=== PATIENT | male | born 1960 | race Caucasian/White ===

== ENCOUNTER 2024-03-22 09:10 | Inpatient (IN) ==
--- NOTE | 2024-03-22 09:32 | Emergency Department Note ---
History of Present Illness General Chief complaint: Rib Injury/Pain Stated complaint: RIB PAIN, SOB, TROUBLE SLEEPING, WEAKNESS, VOMITIN Time Seen by Provider: 03/22/24 09:24 Source: patient, RN notes reviewed and old records reviewed (Attempted but no old records available in EMR) Mode of arrival: ambulatory Limitations: no limitations History of Present Illness Maximum Pain Intensity: 8 This patient is a 63-year-old previous healthy male comes in with sharp right- sided chest pain has been constant for the last 2 days it is worse during the day and also when he lays on it. Has been feeling rundown for the last month or so but thinks it could be work-related. He feels a little short of breath no fall or trauma no pleurisy no fever no rash no cough no abdominal pain he had emesis this morning x 1 no blood or melena .he has been somewhat constipated. He tells me he is healthy otherwise does not smoke drink or use drugs. He recently moved to the area and does not have a local primary care doctor yet Home Medications Medication Instructions Recorded Confirmed Type biotin-alpha lipoic 1 tab PO DAILY 03/22/24 03/22/24 History [id number] 75 mg-300 mcg tablet calcium carbonate 500 mg PO DAILY 03/22/24 03/22/24 History electrolytes, oral 1 packet PO DAILY 03/22/24 03/22/24 History multivitamin 1 tab PO DAILY 03/22/24 03/22/24 History vitamin B complex 1 tab PO DAILY 03/22/24 03/22/24 History Allergies Allergy/AdvReac Type Severity Reaction Status Date / Time No Known Allergies Allergy Unverified 03/22/24 11:15 Past Med/Surg History Problem List (Updated 03/22/24 @ 14:04 by Steve Henderson MD) Hypertension (Acute) Non-STEMI (non-ST elevated myocardial infarction) (Acute) Diabetes mellitus, new onset (Acute) Lymph node enlargement Abnormal EKG Weight loss of more than 10% body weight Hypertensive urgency Chest pain Elevated troponin Hypertensive emergency Weakness (Acute) Elevated troponin I level (Acute) Right-sided chest pain (Acute) Diabetic ketoacidosis (Acute) Social History Smoking Status: Never smoker Preferred Language: Greek Feels Safe at Home: Yes Immunizations: Past medical historypatient denies any. Social historydoes not smoke or drink or use drugs. Review of Systems A total of 10 systems reviewed and were otherwise negative Physical Exam Vital Signs Vital Signs - 24 hr 03/22/24 09:12 03/22/24 10:00 03/22/24 10:00 Temperature 35.9 C L Temperature Source Temporal Artery Scan Pulse Rate 100 H 97 H Pulse Rate [Right Finger] 103 H Pulse Rhythm Pulse Rhythm [Right Finger] Regular Pulse Strength [Right Finger] Normal Respiratory Rate 18 18 Respiratory Effort / Characteristics Non-Labored Spontaneous Non-Labored Respiratory Depth Normal Normal Respiratory Pattern Regular Regular Blood Pressure 217/136 H Blood Pressure [Left Arm] 191/118 H Blood Pressure Mean 163 Blood Pressure Mean [Left Arm] 142 Blood Pressure Position [Left Arm] Pulse Oximetry 99 95 Oxygen Delivery Method Room Air Room Air Sepsis Recent Fever Within 48 Hours No Sepsis New/Unexplained Change in Mental Status N/A Sepsis Action Taken by Nursing No Action Required 03/22/24 10:00 03/22/24 10:00 03/22/24 10:06 Temperature Temperature Source Pulse Rate 91 H Pulse Rate [Right Finger] Pulse Rhythm Regular Pulse Rhythm [Right Finger] Pulse Strength [Right Finger] Respiratory Rate Respiratory Effort / Characteristics Respiratory Depth Respiratory Pattern Blood Pressure 191/118 H 191/118 H Blood Pressure [Left Arm] Blood Pressure Mean 137 137 Blood Pressure Mean [Left Arm] Blood Pressure Position [Left Arm] Pulse Oximetry 97 Oxygen Delivery Method Room Air Sepsis Recent Fever Within 48 Hours Sepsis New/Unexplained Change in Mental Status Sepsis Action Taken by Nursing 03/22/24 10:06 03/22/24 11:14 03/22/24 11:14 Temperature Temperature Source Pulse Rate 101 H Pulse Rate [Right Finger] Pulse Rhythm Pulse Rhythm [Right Finger] Pulse Strength [Right Finger] Respiratory Rate 31 H Respiratory Effort / Characteristics Respiratory Depth Respiratory Pattern Blood Pressure 189/123 H 189/123 H Blood Pressure [Left Arm] Blood Pressure Mean 148 148 Blood Pressure Mean [Left Arm] Blood Pressure Position [Left Arm] Pulse Oximetry Oxygen Delivery Method Sepsis Recent Fever Within 48 Hours Sepsis New/Unexplained Change in Mental Status Sepsis Action Taken by Nursing 03/22/24 11:15 Temperature Temperature Source Pulse Rate Pulse Rate [Right Finger] 103 H Pulse Rhythm Pulse Rhythm [Right Finger] Regular Pulse Strength [Right Finger] Normal Respiratory Rate 18 Respiratory Effort / Characteristics Non-Labored Respiratory Depth Normal Respiratory Pattern Regular Blood Pressure Blood Pressure [Left Arm] 189/123 H Blood Pressure Mean Blood Pressure Mean [Left Arm] 145 Blood Pressure Position [Left Arm] Lying Pulse Oximetry 98 Oxygen Delivery Method Room Air Sepsis Recent Fever Within 48 Hours Sepsis New/Unexplained Change in Mental Status Sepsis Action Taken by Nursing General: Well developed well nourished middle-age male who appears in no acute distress, breathing comfortably on room air. Normal speech HEENT: Normal cephalic atraumatic. Pupils are equal round and reactive to light. Extraocular movements are intact. Oropharynx is pink with moist mucous membranes. No swelling of the mouth lips or tongue. Neck: Supple with a midline trachea. No meningeal signs or stiffness, no JVD or bruits. No Stridor. Chest: Clear to auscultation bilaterally. No wheezes or rhonchi. No increased work of breathing. No crepitus. No rash. Heart: Regular rate and rhythm without murmurs or gallops. Abdomen: Soft nontender, nondistended without rebound guarding or rigidity. Extremities: No cyanosis clubbing or edema. No calf tenderness or assymetry Spine/Back. Non tender to palpation. No CVA tenderness Skin: Good turgor without rashes. Neurologic exam: Cranial nerves two through 12 are intact. Motor and sensation are intact and symmetrical throughout. Course Administered Medications Insulin Human Regular 250 (units/ Sodium Chloride) 250 mls @ 5.8 mls/hr IV .Q24H [facility]; Protocol Stop: 04/21/24 10:44 Last Titration: 03/22/24 13:39 Dose: 5.8 units/hr, 5.8 mls/hr Documented By: BECKIE Co-signed By: GINA Admin: 03/22/24 11:24 Dose: 7.2 units/hr, 7.2 mls/hr Documented By: NASIM Co-signed By: [facility] Discontinued Medications Sodium Chloride (Nss) 1,000 mls @ 999 mls/hr IV .Q1H1M STA Stop: 03/22/24 10:30 Last Admin: 03/22/24 10:06 Dose: 999 mls/hr Documented By: NASIM Sodium Chloride (Nss) 1,000 mls @ 999 mls/hr IV .Q1H1M ONE Stop: 03/22/24 11:33 Last Admin: 03/22/24 12:32 Dose: 999 mls/hr Documented By: NASIM Lactated Ringer's (Lr) 1,000 mls @ 999 mls/hr IV .Q1H1M ONE Stop: 03/22/24 13:00 Last Admin: 03/22/24 11:57 Dose: 999 mls/hr Documented By: MACKENZIE Insulin Human Regular (Novolin-R Bolus From Bag) 6 units IV NOW STA Stop: 03/22/24 10:41 Last Admin: 03/22/24 11:28 Dose: 6 units Documented By: NASIM Co-signed By: MACKENZIE Ioversol (Optiray 320 125ml) 112 ml IV ONCE ONE Stop: 03/22/24 10:48 Last Admin: 03/22/24 10:47 Dose: 112 ml Documented By: PURA Metoprolol Tartrate (Metoprolol Tartrate 1 Mg/Ml Vial) 5 mg IV NOW STA Stop: 03/22/24 11:57 Last Admin: 03/22/24 12:17 Dose: 5 mg Documented By: NASIM Metoprolol Tartrate (Metoprolol Tartrate 1 Mg/Ml Vial) 5 mg IV NOW STA Stop: 03/22/24 12:40 Last Admin: 03/22/24 12:51 Dose: 5 mg Documented By: NASIM Morphine Sulfate (Morphine Sulfate 2 Mg/Ml Carp) 2 mg IV NOW STA Stop: 03/22/24 09:51 Last Admin: 03/22/24 10:15 Dose: 2 mg Documented By: NASIM Ondansetron HCl (Ondansetron Inj 2 Mg/Ml 2 Ml Vial) 4 mg IV NOW STA Stop: 03/22/24 09:51 Last Admin: 03/22/24 10:15 Dose: 4 mg Documented By: NASIM Critical Care Time Critical Care Time: Yes Total Critical Care Time: 60 Due to the patient's chest pain, concern for vascular or neurologic problems as well as multiple lab abnormalities, new onset diabetic ketoacidosis and consultations, IV fluids as well as multiple medications needed as well as frequent reassessment, I have personally spent greater than 30 minutes of critical care time in the direct management of this patient. This includes bedside care, interpretation of diagnostic studies, and testing, discussion with consultants, patient, and family members, and other required patient management activities. This 30 minutes is in excess of all separately billable procedures. Medical Decision Making Differential Diagnosis Musculoskeletal, infectious, pulmonary disease, PE, cardiac disease, pneumothorax, intra-abdominal process, electrolyte or metabolic abnormality, anxiety Medical Records Attestation: I reviewed the patient's medical records. Home Medications Current Medication List: was personally reviewed by me Laboratory Data Attestation: I reviewed the patient's lab results. 03/22/24 09:52 03/22/24 09:52 Lab Results 03/22/24 03/22/24 03/22/24 Range/Units 09:52 09:55 10:26 WBC 10.84 H (4.8-10.8) K/ul RBC 5.43 (4.70-6.10) M/uL Hgb 16.6 (14.0-18.0) g/dl POC Hgb 18.7 H (14.0-18.0) g/dl Hct 50.4 (42.0-52.0) % POC Hct 55 H (42-52) % MCV 92.8 (80.0-100.0) fL MCH 30.6 (25.0-34.0) pg MCHC 32.9 (32.0-36.0) g/dL RDW Std Deviation 43.4 (36.4-46.3) fL RDW Coeff of Alexa 12.7 (11.5-14.5) % Plt Count 232 (130-400) K/uL MPV 10.8 (9.4-12.4) fL Immature Gran % (Auto) 0.3 % Neut % (Auto) 89.4 % Lymph % (Auto) 5.9 % [place] % (Auto) 3.8 % Eos % (Auto) 0.0 % Baso % (Auto) 0.6 % Neut # (Auto) 9.69 H (1.40-6.50) K/uL Lymph # (Auto) 0.64 L (1.20-3.40) K/uL [place] # (Auto) 0.41 (0.11-0.59) K/uL Eos # (Auto) 0.00 (0.00-0.50) K/uL Baso # (Auto) 0.07 (0.00-0.20) K/uL Immature Gran # (Auto) 0.03 (0.01-0.20) K/uL D-Dimer 380 (0-500) ug/L FEU VBG pH 7.15 L (7.36-7.41) VBG pCO2 42 (38-50) mmHg VBG pO2 50 mmHg VBG HCO3 15 mmol/L VBG O2 Saturation 76.0 % VBG Base Excess -13.8 mEq/L POC Sodium 132 L (135-144) mmol/L Sodium 130 L (136-145) mmol/L POC Potassium 4.9 (3.3-5.0) mmol/L Potassium 4.8 (3.5-5.1) mmol/L POC Chloride 99 L (101-112) mmol/L Chloride 92 L (98-107) mmol/L Carbon Dioxide 14 L (21-32) mmol/L POC Total CO2 15 L (24-31) mmol/L Anion Gap 24 H (3-11) POC Anion Gap 24.0 (16-25) mmol/L POC BUN 21 H (7-18) mg/dl BUN 23 (6-23) mg/dl Creatinine 1.34 (0.6-1.4) mg/dl POC Creatinine 1.0 (0.6-1.3) mg/dl Est Cr Clr Drug Dosing 49.0 ml/min Est GFR ( Amer) 65.3 ml/min Est GFR (Non-Af Amer) 56.4 ml/min BUN/Creatinine Ratio 17.2 (10-20) Glucose 611 H* (70-99(Fasting)) mg/dl POC Glucose (other) 625 H* (70-99) mg/dl Calcium 10.7 H (8.6-10.3) mg/dl POC Ioniz Calcium Karlos 1.29 (1.12-1.32) mmol/l Phosphorus 5.8 H (2.5-4.9) mg/dl Magnesium 2.2 (1.7-2.4) mg/dl Total Bilirubin 0.9 (0.2-1.0) mg/dl AST 22 (13-39) U/L ALT 35 (7-52) U/L Alkaline Phosphatase 118 H (34-104) U/L Troponin I High Sens 552.4 H* (0-20) pg/ml Total Protein 8.9 H (6.0-8.3) gm/dl Albumin 5.0 (3.4-5.0) gm/dl Globulin 3.9 (2.5-4.0) gm/dl Albumin/Globulin Ratio 1.3 (0.9-2) Lipase 18 (11-82) U/L Prostate Specific Ag 0.540 (0-4) ng/ml Free PSA 0.13 (0-2.0) ng/ml % Free PSA 24.1 % Imaging Data Attestation: I personally reviewed and interpreted this imaging study as follows: My Impression: Chest x-rayno acute infiltrate, failure, pneumothorax seen Radiologist's Impression: Chest X-Ray 03/22/24 09:50 SINGLE VIEW CHEST CLINICAL HISTORY: Atypical chest pain. FINDINGS: An AP, portable, upright chest radiograph is obtained. No prior studies are available for comparison at the time of dictation. The cardiomediastinal silhouette is unremarkable. There is elevation of the right hemidiaphragm. The lungs and pleural spaces are clear. No pneumothorax is seen. The bony thorax is grossly intact. IMPRESSION: No active disease in the chest. ACT 112: Negative or not required by law. Electronically signed by: Félix Van M.D. 03/22/2024 10:31 AM Abdomen CTA 03/22/24 09:59 CT ANGIOGRAM OF THE ABDOMEN COMBO CLINICAL HISTORY: Low back pain. COMPARISON STUDY: No priors. TECHNIQUE: Before and following the IV administration of 112 cc of Optiray 320, CT angiogram of the abdomen was performed from the lung bases the pelvic and. Images are reviewed in the axial, sagittal, and coronal planes. 3-D MIPS images are created and assessed. IV contrast was administered without complication. A dose lowering technique was utilized adhering to the principles of ALARA. FINDINGS: Lower chest: The heart is enlarged and without pericardial effusion. There are coronary artery calcifications. There is mild ectasia of the partially visualized ascending thoracic aorta. This measures up to 3.7 cm in diameter. There is elevation of the right hemidiaphragm and bibasilar scarring/atelectasis. No airspace consolidation or pleural effusion is identified. A small hiatal hernia is noted. Liver: The contrast-enhanced liver is normal in size, contour, and attenuation. There is no intrahepatic biliary ductal dilatation. The main portal veins appear patent. Gallbladder: Unremarkable. Spleen: Normal in size and attenuation noting heterogeneous arterial phase enhancement. Pancreas: Unremarkable. Adrenal glands: Unremarkable. Kidneys: The contrast enhanced kidneys are normal in size and without hydronephrosis. The kidneys enhance symmetrically. No renal calculi are identified on the unenhanced series and there is no proximal ureteral stone. Abdominal aorta and iliac arteries: The abdominal aorta is normal in course and caliber noting mild atherosclerotic calcification. The abdominal aorta is widely patent. No dissection is seen. Imaged portions of the common iliac arteries are widely patent. Major branches of the abdominal aorta: The celiac trunk, superior mesenteric, and inferior mesenteric arteries are widely patent. Hepatic arterial anatomy is conventional. The splenic artery is patent. There are 2 renal arteries seen bilaterally. These are widely patent. Bowel: Imaged portions of the small bowel and colon show no evidence of obstruction. There is moderate colonic fecal retention. The appendix is well- visualized and normal. Peritoneum: There is no intraperitoneal free air or abdominal ascites. There is a small fat-containing umbilical hernia. Lymphadenopathy: There is a pathologically enlarged retrocaval lymph node/mass lesion seen on image #119. This measures 3.6 x 3.9 x 2.9 cm. No additional pathologically enlarged lymph nodes are identified in the abdomen. Skeletal structures: There is mild lumbosacral spondylosis. No destructive bony lesions are seen. IMPRESSION: 1. Unremarkable CT angiogram of the abdominal aorta and its major branches. 2. No acute infectious or inflammatory findings are identified in the abdomen. 3. There is a 3.9 cm pathologically enlarged retrocaval lymph node or mass lesion. This is pathologically indeterminant, and neoplasm is the diagnosis of exclusion. Consider correlation with scrotal ultrasound and serum PSA levels as well as dedicated imaging of the pelvis. 4. No additional pathologically enlarged lymph nodes are identified in the abdomen. 5. Additional findings as above. ACT 112: Positive. There are findings on this exam that require communication between the performing entity and the patient following Patient Test Result Information Act ([place] Act 112) guidelines. Electronically signed by: Félix Van M.D. 03/22/2024 11:38 AM Chest CTA 03/22/24 09:59 CHEST CTA for AORTIC DISSECTION CT DOSE: 2556.7 mGy.cm HISTORY: rt sided chest pain TECHNIQUE: Multiaxial CT images of the chest were performed both before and after the intravenous administration of contrast to evaluate the aorta. 3D/MIP images were also obtained. Sagittal and coronal reformations were also reviewed. A dose lowering technique was utilized adhering to the principles of ALARA. COMPARISON STUDY: None. FINDINGS: No acute fractures within the chest. The ascending thoracic aorta measures up to 3.8 cm in diameter. No evidence for an aortic dissection. The central pulmonary arteries are patent. There is mild elevation of the right hemidiaphragm. The heart is normal in size. Mild coronary artery calcifications are noted. No pleural or pericardial effusions. The abdominal structures will be reported on the same day abdomen and pelvis CT. There is a partially visualized single enlarged retrocaval mass/lymph node on image 225. This measures 3.7 cm. Normal esophagus. No mediastinal or hilar lymphadenopathy. The central airways are patent. No pneumothorax. No focal lung consolidations to suggest a pneumonia. No evidence for pulmonary edema. Right basilar linear densities favor subsegmental atelectasis or scarring. IMPRESSION: 1. No evidence for an aortic dissection. 2. There is a partially visualized 3.7 cm right retrocaval mass/lymph node within the abdomen. This is is highly suspicious for a malignancy. This is better appreciated on the same day abdomen and pelvis CT. ACT 112: Positive. There are findings on this exam that require communication between the performing entity and the patient following Patient Test Result Information Act ([place] Act 112) guidelines. Electronically signed by: Clint Barakat M.D. 03/22/2024 11:[address] 03/22/24 09:59 CT head/brain wo con CLINICAL HISTORY: 63 years-old Male with weakness. Acute weakness TECHNIQUE: Multiple axial CT images of the head were obtained without contrast. A dose lowering technique was utilized adhering to the principles of ALARA. CT DOSE: 625.8 mGy.cm COMPARISON: None. FINDINGS: No acute intracranial hemorrhage, midline shift, intracranial mass, hydrocephalus, territorial ischemia or abnormal extra-axial collection. Mild involutional changes. The calvarium is intact. Prior bilateral injury repair. The paranasal sinuses, mastoid air cells, and middle ear cavities are clear. IMPRESSION: No acute intracranial abnormality. ACT 112: Negative or not required by law. The above report was generated using voice recognition software. It may contain grammatical, syntax or spelling errors. Electronically signed by: Kenny Zuleta M.D. 03/22/2024 11:03 AM ECG Data Attestation: I personally reviewed and interpreted this ECG as follows: Indication: + chest pain Rate (beats per minute): 88 Rhythm: + normal sinus and + other (Poor baseline) ECG Intervals/blocks: + Normal QRS, + Normal QT and + Normal ID ECG [place]: + Normal ECG ST segments: + Nonspecific ST abnormalities ECG Findings: + Q waves Comparison ECG Date: no prior available Additional Comments: EKG #2: Normal sinus rhythm with a rate of 90. There is a poor baseline there is some Q waves inferiorly with some ST abnormalities I suspect he likely had a previous ND. There is no change compared EKG #1 MDM Narrative This patient comes in as described above. He was placed on a awake overnight monitor and room 89. Here for treatment evaluation of right-sided chest pain. Upon my arrival he appears in no distress his O2 sat is 99% on room air. he has no crepitus or subcutaneous air and has equal breath sounds. IV access established and multiple blood testing was obtained. Chest x-ray and ekg. the nurse thought he could have a facial droop I reassessed him and he has normal strength and normal neurologic exam his mouth is very dry but he seems to have normal speech otherwise he is able to name objects and read sentences. His EKG shows normal sinus rhythm he does have some nonspecific ST abnormalities and some Q waves inferiorly likely from previous cardiac event I do not think is likely of an acute STEMI, but may be old findings. He was given morphine 2 mg IV and Zofran 4 mg he for pain and nausea management as below his i-STAT shows a significant elevated blood sugar over 600 with a CO2 of 15 he may be in DKA. He was given 1 L normal saline bolus while waiting for the additional labs and VBG was added. I did talk to Bhavin, our ED pharmacist and he has ordered insulin drip protocol. The patient does have a dry mouth and speech is likely related to hyperglycemia at this point but given his hypertension and chest pain ,I did do a CT angiography of the chest and abdomen to make sure this was not related to his aorta. His chest x-ray does not show congestive heart failure pneumonia or pneumothorax or any findings to suggest aortic pathology. His second EKG was unchanged. The first. His troponin came back elevated at over [address] Diop he looked at the EKGs and did not feel was likely acute STEMI and recommended we get an echocardiogram. Lianet fuentes is actually here in the ED at present and was able to do it promptly. The CAT scan of the head was unremarkable. CAT scan of the chest and abdomen did not show any vascular pathology. There is a node seen in the abdomen which is concerning for possible malignancy and will need to be worked up as well. I did discuss the case in consultation as well as with Dr. Barrett, who saw the patient ER. Dr. Barton, from the ICU also saw the patient ER discussed the case with him as well. Dr. Diop did read his echo and told me there were no wall motion abnormalities. The patient's blood pressures remained elevated although is trending downward. I am not sure what his baseline is and he may have longstanding hypertension. This will further need to be addressed in the hospital. Continuous awake overnight monitor: Orders placed in EMR for continuous cardiac monitoring: Upon my evaluation patient noted to be in normal sinus rhythm rate of 90 Impression & Plan Diabetic ketoacidosis, Right-sided chest pain, Elevated troponin I level, Weakness, Diabetes mellitus, new onset, Non-STEMI (non-ST elevated myocardial infarction), Hypertension Discharge Plan Visit Data Chief Complaint: Rib Injury/Pain Stated Complaint: RIB PAIN, SOB, TROUBLE SLEEPING, WEAKNESS, VOMITIN ED Provider: Steve Henderson Discharge Problem: Diabetic ketoacidosis, Right-sided chest pain, Elevated troponin I level, Weakness, Diabetes mellitus, new onset, Non-STEMI (non-ST elevated myocardial infarction), Hypertension Patient Disposition: Admitted As Inpatient Discharge Instructions Interventions: ED Discharge Assessment Last Done: 03/22/24 13:09 Discharge Problem: Diabetic ketoacidosis Qualifiers: Diabetes mellitus type: type 2 Diabetes mellitus complication detail: without coma Qualified Code(s): E11.10 - Type 2 diabetes mellitus with ketoacidosis without coma Hypertension Qualifiers: Hypertension type: unspecified Qualified Code(s): I10 - Essential (primary) hypertension
[2024-03-22] MEDS: SODIUM CHLORIDE 0.9% 1,000 ML IV STA (10:06)
[2024-03-22 10:12] LABS: Basophils # (auto) 0.07 K/uL (0.00-0.20); Basophils % (auto) 0.6 %; Hematocrit (blood only) 50.4 % (42.0-52.0); Hemoglobin 16.6 g/dl (14.0-18.0); Immature Granulocytes # (auto) 0.03 K/uL (0.01-0.20); Immature Granulocytes % (auto) 0.3 %; Lymphocytes # (auto) 0.64 K/uL (1.20-3.40); Lymphocytes % (auto) 5.9 %; Mean Corpuscular Hemoglobin 30.6 pg (25.0-34.0); Mean Corpuscular Hgb Conc 32.9 g/dL (32.0-36.0); Mean Corpuscular Volume 92.8 fL (80.0-100.0); Mean Platelet Volume 10.8 fL (9.4-12.4); Monocytes # (auto) 0.41 K/uL (0.11-0.59); Monocytes % (auto) 3.8 %; Neutrophils # (auto) 9.69 K/uL (1.40-6.50); Neutrophils % (auto) 89.4 %; Platelet Count 232 K/uL (130-400); RDW Coefficient of Variation 12.7 % (11.5-14.5); RDW Standard Deviation 43.4 fL (36.4-46.3); Red Blood Count 5.43 M/uL (4.70-6.10); White Blood Count 10.84 K/ul (4.8-10.8)
[2024-03-22] MEDS: MoRPHine SULFATE 2 MG/ML CARP IV STA (10:15)
[2024-03-22] MEDS: ONDANSETRON INJ 2 MG/ML 2 ML VIAL IV STA (10:15)
[2024-03-22 10:23] LABS: iSTAT Hemoglobin 18.7 g/dl (14.0-18.0); iSTAT Ionized Calcium 1.29 mmol/l (1.12-1.32); iSTAT Potassium 4.9 mmol/L (3.3-5.0)
[2024-03-22 10:31] LABS: Albumin Globulin Ratio 1.3 (0.9-2); BUN Creatinine Ratio 17.2 (10-20); Bilirubin,Total 0.9 mg/dl (0.2-1.0); Calcium 10.7 mg/dl (8.6-10.3); Est GFR (African American) 65.3 ml/min; Est GFR (Non-African American) 56.4 ml/min; Globulin 3.9 gm/dl (2.5-4.0); Potassium 4.8 mmol/L (3.5-5.1); Total Protein 8.9 gm/dl (6.0-8.3)
--- NOTE | 2024-03-22 10:33 | XRay Report ---
SINGLE VIEW CHEST CLINICAL HISTORY: Atypical chest pain. FINDINGS: An AP, portable, upright chest radiograph is obtained. No prior studies are available for c omparison at the time of dictation. The cardiomediastinal silhouette is unremarkable. There is elevat ion of the right hemidiaphragm. The lungs and pleural spaces are clear. No pneumothorax is seen. The bony thorax is grossly intact. IMPRESSION: No active disease in the chest. ACT 112: Negative or not required by law. Electronically signed by: Félix Van M.D. 03/22/2024 10:31 AM
[2024-03-22 10:34] LABS: Troponin I High Sensitivity 552.4 pg/ml (0-20)
[2024-03-22] MEDS ORDERED: DEXTROSE 50% 50 ML SYRINGE IV PRN (10:35)
[2024-03-22] MEDS ORDERED: SODIUM CHLORIDE 0.9% 1,000 ML IV ONE (10:35)
[2024-03-22] MEDS ORDERED: STAT IV Infusion **Titration per Protocol STA ×2 (10:35→14:00)
[2024-03-22] MEDS ORDERED: GLUCAGON FOR INJ 1 MG VIAL SQ PRN (10:35)
[2024-03-22] MEDS ORDERED: GLUCOSE 40% GEL 15 GM TUBE PO PRN (10:35)
[2024-03-22] MEDS ORDERED: GLUCOSE 10 TAB/TUBE PO PRN (10:35)
[2024-03-22] MEDS ORDERED: CARBOHYDRATES FOR HYPOGLYCEMIA PO PRN (10:35)
[2024-03-22 10:36] LABS: Base Excess VBG -13.8 mEq/L; HCO3 VBG 15 mmol/L; PCO2 VBG 42 mmHg (38-50); PO2 VBG 50 mmHg; pH VBG 7.15 (7.36-7.41)
[2024-03-22 10:37] LABS: D Dimer 380 ug/L FEU (0-500)
[2024-03-22] MEDS: OPTIRAY 320 125ml IV ONE (10:47)
--- NOTE | 2024-03-22 11:01 | Cardiology Consultation ---
Date of Consultation March 22, 2024 Assessment & Plan (1) Hypertensive emergency: (2) Elevated troponin: (3) Diabetic ketoacidosis: Plan IMPRESSION: 63 year old male who presented to [facility] ED with right sided chest pain. No past medical history Found to be markedly hypertensive and in DKA PLAN: Hypertensive Emergency: Markedly hypertensive with metabolic derailment. Abnormal EKG changes with ST elevation noted in inferior leads. HS Trop elevated ~500. DKA: Glucose >600. ED treated with IVF + Insulin. Will defer to primary service regarding management. Case discussed with Dr. Diop. Further recommendations pending assessment. I spent a total of 60 minutes on the date of service in preparation, delivery, and documentation of the care provided to the patient excluding any time spent in the performance of separately billed services. DANIEL Mcdonald Department of Cardiology, [facility] This chart was completed in part utilizing Speech Voice Recognition Software. Grammatical errors, random word insertions, pronoun errors, and incomplete sentences are an occasional consequence of this system due to software limitations, ambient noise, and hardware issues. Any formal questions or concer ns about the content, text, or information contained within the body of this dictation should be directly addressed to the provider for clarification. History of Present Illness Reason for Consultation: Hypertensive urgency CP Abnormal EKG Requesting Physician: Toni Moreno History of Present Illness 63 year old male who presented to [facility] ED secondary to right sided chest discomfort which has been constant x2 days. Noted overall fatigue and low functional capacity over the last month with some dyspnea on exertion. On presentation patient was markedly hypertensive with an admitting BP of 217/136>>191/118. Given EKG showed SR with ST elevation in inferior leads. HR mid 80s. HS Trop elevated at 552.4 Labs: hemoglobin stable. D-Dimer WNL. Renal function stable (Scr 1.34). Sodium low (130). K 4.9. Found to be in DKA with a glucose of 625. Treated with IV fluids and insulin. Echocardiogram obtained: CTA of the chest/abdomen: CT of the head: No acute intracranial abnormality. chest pain, shortness of breath, palpitations, dizziness, syncope or near syncope. No orthopnea, PND, or increased lower extremity edema. No fever, chills, cough, hematochezia, melena, or hemoptysis. Denies previous myocardial infarction, cardiac catheterization, coronary artery bypass grafting, a history of congestive heart failure, valvular disease or rheumatic fever, or history of arrhythmia. Social history: Tobacco: Alcohol: Drugs: Allergies Allergy/AdvReac Type Severity Reaction Status Date / Time No Known Allergies Allergy Unverified 03/22/24 11:15 Home Medications Medication Instructions Recorded Confirmed Type biotin-alpha lipoic 1 tab PO DAILY 03/22/24 03/22/24 History [id number] 75 mg-300 mcg tablet calcium carbonate 500 mg PO DAILY 03/22/24 03/22/24 History electrolytes, oral 1 packet PO DAILY 03/22/24 03/22/24 History multivitamin 1 tab PO DAILY 03/22/24 03/22/24 History vitamin B complex 1 tab PO DAILY 03/22/24 03/22/24 History Patient History Social History Smoking Status: Never smoker Preferred Language: Faroese Feels Safe at Home: Yes Results & Data Vital Signs (Past 12 Hours) Vital Signs Temp Pulse Pulse Resp BP BP Pulse Ox 03/22/24 10:06 91 H 97 03/22/24 10:00 103 H 18 191/118 H 95 03/22/24 10:00 97 H 03/22/24 09:12 35.9 C L 100 H 18 217/136 H 99 O2 Del Method 03/22/24 10:06 Room Air 03/22/24 10:00 Room Air 03/22/24 10:00 03/22/24 09:12 Room Air Laboratory Results Cardiac Enzymes 03/22/24 Range/Units 09:52 AST 22 (13-39) U/L Troponin I High Sens 552.4 H* (0-20) pg/ml CBC 03/22/24 Range/Units 09:52 WBC 10.84 H (4.8-10.8) K/ul RBC 5.43 (4.70-6.10) M/uL Hgb 16.6 (14.0-18.0) g/dl Hct 50.4 (42.0-52.0) % Plt Count 232 (130-400) K/uL Neut # (Auto) 9.69 H (1.40-6.50) K/uL Lymph # (Auto) 0.64 L (1.20-3.40) K/uL [place] # (Auto) 0.41 (0.11-0.59) K/uL Eos # (Auto) 0.00 (0.00-0.50) K/uL Baso # (Auto) 0.07 (0.00-0.20) K/uL Comprehensive Metabolic Panel 03/22/24 Range/Units 09:52 Sodium 130 L (136-145) mmol/L Potassium 4.8 (3.5-5.1) mmol/L Chloride 92 L (98-107) mmol/L Carbon Dioxide 14 L (21-32) mmol/L BUN 23 (6-23) mg/dl Creatinine 1.34 (0.6-1.4) mg/dl Glucose 611 H* (70-99(Fasting)) mg/dl Calcium 10.7 H (8.6-10.3) mg/dl AST 22 (13-39) U/L ALT 35 (7-52) U/L Alkaline Phosphatase 118 H (34-104) U/L Total Protein 8.9 H (6.0-8.3) gm/dl Albumin 5.0 (3.4-5.0) gm/dl Intake and Output 03/21/24 03/22/24 03/22/24 22:59 06:59 14:59 Other: Weight 60.6 kg Weight Measurement Method Chair Scale Patient Weight 03/23/24 06:59 Weight 60.6 kg
[2024-03-22 11:05] LABS: Magnesium 2.2 mg/dl (1.7-2.4); Phosphorus 5.8 mg/dl (2.5-4.9)
--- NOTE | 2024-03-22 11:05 | CT Scan Report ---
CT head/brain wo con CLINICAL HISTORY: 63 years-old Male with weakness. Acute weakness TECHNIQUE: Multiple axial CT images of the head were obtained without contrast. A dose lowering tech nique was utilized adhering to the principles of ALARA. CT DOSE: 625.8 mGy.cm COMPARISON: None. FINDINGS: No acute intracranial hemorrhage, midline shift, intracranial mass, hydrocephalus, territorial ischem ia or abnormal extra-axial collection. Mild involutional changes. The calvarium is intact. Prior bilateral injury repair. The paranasal sinuses, mastoid air cells, and middle ear cavities are clear. IMPRESSION: No acute intracranial abnormality. ACT 112: Negative or not required by law. The above report was generated using voice recognition software. It may contain grammatical, syntax o r spelling errors. Electronically signed by: Kenny Zuleta M.D. 03/22/2024 11:03 AM
[2024-03-22] MEDS: INSULIN REGULAR 250 UNITS in SODIUM CHLORIDE 0.9% 247.5 ML IV SCH (11:24)
[2024-03-22] MEDS: NovoLIN-R BOLUS FROM BAG IV STA (11:28)
--- NOTE | 2024-03-22 11:37 | CT Scan Report ---
CHEST CTA for AORTIC DISSECTION CT DOSE: 2556.7 mGy.cm HISTORY: rt sided chest pain TECHNIQUE: Multiaxial CT images of the chest were performed both before and after the intravenous adm inistration of contrast to evaluate the aorta. 3D/MIP images were also obtained. Sagittal and coronal reformations were also reviewed. A dose lowering technique was utilized adhering to the principles of ALARA. COMPARISON STUDY: None. FINDINGS: No acute fractures within the chest. The ascending thoracic aorta measures up to 3.8 cm in diameter. No evidence for an aortic dissection. The central pulmonary arteries are patent. There is m ild elevation of the right hemidiaphragm. The heart is normal in size. Mild coronary artery calcifica tions are noted. No pleural or pericardial effusions. The abdominal structures will be reported on same day abdomen and pelvis CT. There is a partially visualized single enlarged retrocaval mass/lym ph node on image 225. This measures 3.7 cm. Normal esophagus. No mediastinal or hilar lymphadenopathy . The central airways are patent. No pneumothorax. No focal lung consolidations to suggest a pneumoni a. No evidence for pulmonary edema. Right basilar linear densities favor subsegmental atelectasis or scarring. IMPRESSION: 1. No evidence for an aortic dissection. 2. There is a partially visualized 3.7 cm right retrocaval mass/lymph node within the abdomen. This i s is highly suspicious for a malignancy. This is better appreciated on the same day abdomen and pelvi s CT. ACT 112: Positive. There are findings on this exam that require communication between the performing entity and the patient following Patient Test Result Information Act ([place] Act 112) guidelines. Electronically signed by: Clint Barakat M.D. 03/22/2024 11:35 AM
--- NOTE | 2024-03-22 11:39 | CT Scan Report ---
CT ANGIOGRAM OF THE ABDOMEN COMBO CLINICAL HISTORY: Low back pain. COMPARISON STUDY: No priors. TECHNIQUE: Before and following the IV administration of 112 cc of Optiray 320, CT angiogram of the rachana aranda was performed from the lung bases the pelvic and. Images are reviewed in the axial, sagittal, and coronal planes. 3-D MIPS images are created and assessed. IV contrast was administered without co mplication. A dose lowering technique was utilized adhering to the principles of ALARA. FINDINGS: Lower chest: The heart is enlarged and without pericardial effusion. There are coronary artery calcif ications. There is mild ectasia of the partially visualized ascending thoracic aorta. This measures u p to 3.7 cm in diameter. There is elevation of the right hemidiaphragm and bibasilar scarring/atelect asis. No airspace consolidation or pleural effusion is identified. A small hiatal hernia is noted. Liver: The contrast-enhanced liver is normal in size, contour, and attenuation. There is no intrahepa tic biliary ductal dilatation. The main portal veins appear patent. Gallbladder: Unremarkable. Spleen: Normal in size and attenuation noting heterogeneous arterial phase enhancement. Pancreas: Unremarkable. Adrenal glands: Unremarkable. Kidneys: The contrast enhanced kidneys are normal in size and without hydronephrosis. The kidneys enh ance symmetrically. No renal calculi are identified on the unenhanced series and there is no proximal ureteral stone. Abdominal aorta and iliac arteries: The abdominal aorta is normal in course and caliber noting mild a therosclerotic calcification. The abdominal aorta is widely patent. No dissection is seen. Imaged por tions of the common iliac arteries are widely patent. Major branches of the abdominal aorta: The celiac trunk, superior mesenteric, and inferior mesenteric arteries are widely patent. Hepatic arterial anatomy is conventional. The splenic artery is patent. There are 2 renal arteries seen bilaterally. These are widely patent. Bowel: Imaged portions of the small bowel and colon show no evidence of obstruction. There is moderat e colonic fecal retention. The appendix is well-visualized and normal. Peritoneum: There is no intraperitoneal free air or abdominal ascites. There is a small fat-containin g umbilical hernia. Lymphadenopathy: There is a pathologically enlarged retrocaval lymph node/mass lesion seen on image # 119. This measures 3.6 x 3.9 x 2.9 cm. No additional pathologically enlarged lymph nodes are identifi ed in the abdomen. Skeletal structures: There is mild lumbosacral spondylosis. No destructive bony lesions are seen. IMPRESSION: 1. Unremarkable CT angiogram of the abdominal aorta and its major branches. 2. No acute infectious or inflammatory findings are identified in the abdomen. 3. There is a 3.9 cm pathologically enlarged retrocaval lymph node or mass lesion. This is pathologic ally indeterminant, and neoplasm is the diagnosis of exclusion. Consider correlation with scrotal ult rasound and serum PSA levels as well as dedicated imaging of the pelvis. 4. No additional pathologically enlarged lymph nodes are identified in the abdomen. 5. Additional findings as above. ACT 112: Positive. There are findings on this exam that require communication between the performing entity and the patient following Patient Test Result Information Act ([place] Act 112) guidelines. Electronically signed by: Félix Van M.D. 03/22/2024 11:38 AM
--- NOTE | 2024-03-22 11:40 | History & Physical Report ---
Date of Service March 22, 2024 Assessment & Plan (1) Chest pain: (2) Hypertensive urgency: Plan: 63 year old male with no known past medical history presenting with chest pain x 2 days, not feeling well for the past month. CHEST PAIN, RIGHT SIDED R/O ACS Troponin 552, repeat x 2 echo pending D dimer 380 ER discussed case with Dr. Jadon Johnson pending CT chest and Abdomen/pelvis ordered given presentation including HTN urgency, and DKA, will admit to ICU discussed with Dr. Barton ASA 325mg po given HYPERTENSIVE URGENCY admitting BP 217/136 given IV Morphine, repeat BP 191/118 Metoprolol, Lisinopril started DKA new diagnosis of DM, A1c 16 has history of DM 2 in the family Insulin drip ordered DKA protocol Pharmacy Glycemic consult ordered DM educator DVT prophylaxis Lovenox SC Full Code Disposition admit to ICU lives at home plan of care discussed with patient in detail all questions answered he is understanding, agreeable, comfortable with the plan of care History of Present Illness Chief Complaint: R sided chest pain x 2 days Primary Care Provider: NO PCP 63 year old male with no known past medical history presenting with chest pain x 2 days, not feeling well for the past month. Patient states he has no known medical history and is currently not following with a PCP. He just moved to the area recently as well. He reports not feeling well for the past month- tired, always thirsty. For the past 2 days, he has been having right sided pain- pressure/sharp, severe, non radiating, associated with mild shortness of breath. No cough, fever/chills, abdominal pain. He had 1 episode of vomiting, non bloody earlier today. On admission, BP was 217/136, HR 100. Trop 552, EKG ST elevation in lead II-III? BSG 611, HCO3 14, AG 24, pH 7.15 Patient was given IV Morphine, case discussed with Cardiology, echo ordered Insulin drip ordered CT chest, abdomen/pelvis also ordered: results pending On exam, patient seen resting in bed, pleasant states R sided chest pain is better- 2/10, no dizziness, headache, nausea, shortness of breath, abdominal pain no other new symptoms Allergies Allergy/AdvReac Type Severity Reaction Status Date / Time No Known Allergies Allergy Unverified 03/22/24 11:15 Home Medications Medication Instructions Recorded Confirmed Type biotin-alpha lipoic 1 tab PO DAILY 03/22/24 03/22/24 History [id number] 75 mg-300 mcg tablet calcium carbonate 500 mg PO DAILY 03/22/24 03/22/24 History electrolytes, oral 1 packet PO DAILY 03/22/24 03/22/24 History multivitamin 1 tab PO DAILY 03/22/24 03/22/24 History vitamin B complex 1 tab PO DAILY 03/22/24 03/22/24 History Past Med/Surg History Problem List (Updated 03/22/24 @ 14:04 by Steve Henderson MD) Hypertension (Acute) Non-STEMI (non-ST elevated myocardial infarction) (Acute) Diabetes mellitus, new onset (Acute) Lymph node enlargement Abnormal EKG Weight loss of more than 10% body weight Hypertensive urgency Chest pain Elevated troponin Hypertensive emergency Weakness (Acute) Elevated troponin I level (Acute) Right-sided chest pain (Acute) Diabetic ketoacidosis (Acute) Social History Smoking Status: Never smoker Second Hand Exposure: No; Do You Dip or Chew Tobacco: No; Hx Alcohol Use: No Hx Substance Use: No Preferred Language: Occitan Communication Ability: Effective 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 Beliefs That Will Affect Care: None Current Living Situation: Alone Feels Safe at Home: Yes Assistive Devices: None Review of Systems Review of Systems: all noted and negative except for above Physical Exam Physical Exam: General- oriented x 3, not in distress, speaks in sentences with no effort or accessory muscle use Head- atraumatic Eyes- PERRL, EOMI, anicteric ENT- oropharynx clear Neck- supple, no JVD, no adenopathy, no thyromegaly; carotids +2/2, no bruits appreciated Lungs- clear to auscultation bilaterally, no rales/wheezes Heart- normal rate, regular rhythm; no murmur, no gallop, no rub appreciated Abdomen- normal bowel sounds, nondistended, soft, nontender, no masses or hepatosplenomegaly Extremities- no pretibial edema, no calf tenderness; peripheral pulses intact Neuro- alert, oriented x 3; CN 2-12 grossly intact; motor 5/5 bilaterally;sensation 100% on all extremities; no other gross focal neurologic deficits Skin- warm & dry Results & Data Results & Data Vital Signs (Past 12 Hours) Vital Signs Temp Pulse Pulse Resp BP BP Pulse Ox 03/22/24 10:06 91 H 97 03/22/24 10:00 103 H 18 191/118 H 95 03/22/24 10:00 97 H 03/22/24 09:12 35.9 C L 100 H 18 217/136 H 99 O2 Del Method 03/22/24 10:06 Room Air 03/22/24 10:00 Room Air 03/22/24 10:00 03/22/24 09:12 Room Air all noted and reviewed including below Code Status & VTE Plan VTE Prophylaxis Plan VTE Prophylaxis will be ordered: No
[2024-03-22 11:52] LABS: Base Excess ABG -15.5 mEq/L (-9-1.8); HCO3 ABG 11 mmol/L (19-24); Oxygen Saturation ABG 97.5 % (90-95); PCO2 ABG 26 mmHg (35-46); PO2 ABG 94 mmHg (80-95); pH ABG 7.22 (7.35-7.45)
[2024-03-22 11:53] LABS: Allen Test Pos (Pos)
[2024-03-22] MEDS: LACTATED RINGER'S 1,000 ML IV ONE (11:57)
--- NOTE | 2024-03-22 12:10 | Cardiology Consultation ---
Date of Consultation March 22, 2024 Assessment & Plan (1) Hypertensive emergency: (2) Elevated troponin: (3) Diabetic ketoacidosis: Plan Impression: 63-year-old male admitted for hypertensive urgency and DKA. Plan: Hypertensive emergency: Markedly hypertensive with metabolic derailment Abnormal EKG changes with ST elevation noted inferior leads + High-sensitivity troponin elevated ~500.; likely due to strain/demand from marked hypertension. -Recommend aggressive management of blood pressure: -Recommend starting beta grazyna therapy. -Will also consider ACEi/ARB for renal protection given underlying diabetes -Given degree of hypertension patient will likely require at minimum 3 blood pressure medications to obtain adequate control. -Start ASA 81 mg daily -Await official echo read; preliminary with preserved LVEF, no new WMA, or significant valve disease. -Lipid check in the am with morning blood work. Will need to start statin therapy. -Once BP and glucose is under control will consider stress testing- increase risk for coronary disease given uncontrolled DM and hypertension DKA: Glucose greater than 600. ED treated with IV fluids and insulin. A1c 16.5% -Will defer to primary service/ICU team regarding management. Case discussed with Dr. Diop. Further recommendations pending assessment. I spent a total of 60 minutes on the date of service in preparation, delivery, and documentation of the care provided to the patient excluding any time spent in the performance of separately billed services. DANIEL Mcdonald Department of Cardiology, [facility] This chart was completed in part utilizing Speech Voice Recognition Software. Grammatical errors, random word insertions, pronoun errors, and incomplete sentences are an occasional consequence of this system due to software limitations, ambient noise, and hardware issues. Any formal questions or concerns about the content, text, or information contained within the body of this dictation should be directly addressed to the provider for clarification. Supervising Physician Co-Signing Physician Notes Patient was seen and personally examined. Full assessment and plan as outlined by advanced provider. Care and management discussed and personally endorsed. 63-year-old male with limited cardiac and medical care recently who presented with symptoms of right-sided chest pain and shortness of breath of 2 days duration. Acute ER evaluation demonstrated marked metabolic derangement with evidence of DKA and hypertensive urgency/emergency. Initial EKG with ST elevation inferior leads III and aVF. Echocardiogram demonstrates preserved wall motion and no significant valvular Suspect hypertensive mediated EKG and enzyme rise. Underlying obstructive coronary disease not completely excluded Patient currently asymptomatic at time of exam Transfer to ICU being arranged Plan as above will require antihypertensive regimen. Given significant elevation on presentation will likely require 2-3 drugs for total management IV and oral beta-grazyna to begin. Consider IV infusion nitroglycerin or calcium channel grazyna if persistently elevated Renal function is stable and CAT scan does not suggest significant renal disease Will follow EKGs and cardiac enzymes serial Cardiology will follow I spent a total of 25 minutes on the date of service in preparation, delivery, and documentation of the care provided to the patient excluding any time spent in the performance of separately billed s History of Present Illness Reason for Consultation: Chest pain Hypertensive urgency Elevated troponin Requesting Physician: Toni Moreno History of Present Illness 63-year-old male who presented to [facility] emergency department secondary to right- sided chest discomfort which has been constant x 2 days. Noted overall fatigue and low functional capacity over the last month with some dyspnea on exertion. Knew something was wrong today when he because very nauseated and was unable to keep down any food or fluids. Notes that he has been extremely thirsty over the last month also- drinking over 1 gallon of water a day. On presentation patient was markedly hypertensive with an admitting blood pressure of 217/136>> 191/118 after morphine. EKG showed sinus rhythm with ST elevation inferior leads. Heart rate in the mid 80s. High-sensitivity troponin elevated at 552.4. Labs: Hemoglobin stable. D-dimer within normal limits. Renal function stable, serum creatinine of 1.34. Sodium low 130. Potassium 4.9. Found to be in DKA with a glucose of 625. A1c 16.5%. Treated with IV fluids and insulin. Echocardiogram obtained, pending. Preliminary read showing preserved LV systolic function without significant valvular disease or new wall motion abnormalities. CTA of the chest/abdomen: No evidence of thoracic or abdominal aortic dissection. No acute infectious or inflammatory findings in the abdomen. There is a 3.9 cm pathologically enlarged retrocaval lymph node or mass lesion--recommended further workup. CT of the head: No acute intracranial abnormality. Upon entrance into the room patient resting in bed. No acute distress. Notes ongoing chest pain/pressure on the right side, but improved compared to admission. Notes that position changes have some effect on the pain. Reproducible with palpation. No shortness of breath, palpitations, light headedness/dizziness, syncope or near syncope. No orthopnea, PND, or increased lower extremity edema. No fever, chills, cough, hematochezia, melena, or hemoptysis. No pertinent past medical history however patient has not been seen by primary care provider in over 20 years. Notes that 2 years ago was the last time he has had his blood pressure checked. Denies previous myocardial infarction, cardiac catheterization, coronary artery bypass grafting, a history of congestive heart failure, valvular disease or rheumatic fever, or history of arrhythmia. Social history: Works from home doing [employer] for [employer]. Tobacco: none Alcohol: none Drugs: none Family history: Type 2 DM Allergies Allergy/AdvReac Type Severity Reaction Status Date / Time No Known Allergies Allergy Unverified 03/22/24 11:15 Home Medications Medication Instructions Recorded Confirmed Type biotin-alpha lipoic 1 tab PO DAILY 03/22/24 03/22/24 History [id number] 75 mg-300 mcg tablet calcium carbonate 500 mg PO DAILY 03/22/24 03/22/24 History electrolytes, oral 1 packet PO DAILY 03/22/24 03/22/24 History multivitamin 1 tab PO DAILY 03/22/24 03/22/24 History vitamin B complex 1 tab PO DAILY 03/22/24 03/22/24 History Patient History Social History Smoking Status: Never smoker Preferred Language: Samoan Feels Safe at Home: Yes Review of Systems Review of Systems: All systems reviewed & are unremarkable except as noted in HPI & below Physical Exam Constitutional: WD/WN, vitals as above no acute distress Eyes: PERRL, conjunctivae normal, anicteric sclerae Neck: normal visual inspection and trachea midline Respiratory: normal respiratory effort, lungs clear to auscultation Cardiovascular: RRR, no murmur, no edema Heart Sounds: normal S1 and normal S2; no murmur Vessels: no JVD Extremities: no edema Gastrointestinal (Abdomen): normal bowel sounds, soft, nontender, no hepatosplenomegaly Musculoskeletal: no cyanosis or clubbing, extremities motor strength 5/5 Skin: no rashes, warm and dry Neurologic: PERRL, EOMI, accommodation nl, no face palsy, no dysarthria Psychiatric: A+Ox3, euthymic affect Results & Data Vital Signs (Past 12 Hours) Vital Signs Temp Pulse Pulse Resp BP BP Pulse Ox 03/22/24 10:06 91 H 97 03/22/24 10:00 103 H 18 191/118 H 95 03/22/24 10:00 97 H 03/22/24 09:12 35.9 C L 100 H 18 217/136 H 99 O2 Del Method 03/22/24 10:06 Room Air 03/22/24 10:00 Room Air 03/22/24 10:00 03/22/24 09:12 Room Air Laboratory Results Cardiac Enzymes 03/22/24 03/22/24 Range/Units 09:52 11:37 AST 22 (13-39) U/L Troponin I High Sens 552.4 H* 591.7 H* (0-20) pg/ml CBC 03/22/24 Range/Units 09:52 WBC 10.84 H (4.8-10.8) K/ul RBC 5.43 (4.70-6.10) M/uL Hgb 16.6 (14.0-18.0) g/dl Hct 50.4 (42.0-52.0) % Plt Count 232 (130-400) K/uL Neut # (Auto) 9.69 H (1.40-6.50) K/uL Lymph # (Auto) 0.64 L (1.20-3.40) K/uL [place] # (Auto) 0.41 (0.11-0.59) K/uL Eos # (Auto) 0.00 (0.00-0.50) K/uL Baso # (Auto) 0.07 (0.00-0.20) K/uL Comprehensive Metabolic Panel 03/22/24 Range/Units 09:52 Sodium 130 L (136-145) mmol/L Potassium 4.8 (3.5-5.1) mmol/L Chloride 92 L (98-107) mmol/L Carbon Dioxide 14 L (21-32) mmol/L BUN 23 (6-23) mg/dl Creatinine 1.34 (0.6-1.4) mg/dl Glucose 611 H* (70-99(Fasting)) mg/dl Calcium 10.7 H (8.6-10.3) mg/dl AST 22 (13-39) U/L ALT 35 (7-52) U/L Alkaline Phosphatase 118 H (34-104) U/L Total Protein 8.9 H (6.0-8.3) gm/dl Albumin 5.0 (3.4-5.0) gm/dl Intake and Output 03/21/24 03/22/24 03/22/24 22:59 06:59 14:59 Other: Weight 60.6 kg Weight Measurement Method Chair Scale Patient Weight 03/23/24 06:59 Weight 60.6 kg
--- NOTE | 2024-03-22 12:13 | Critical Care Consultation ---
Date of Consultation March 22, 2024 Assessment & Plan (1) Hypertensive emergency: Reason Critically Ill: 63-year-old male without significant past medical history with hypertensive emergency PLAN: Resp: CV: Hypertensive emergency -Systolic blood pressure in 220s, responded nicely with two 5 mg doses of metoprolol -Start 50 g p.o. metoprolol twice daily, 10 mg lisinopril daily -Check a.m. fasting lipid panel Elevated troponins, abnormal EKG -Suspect type II ischemia related to hypertensive crisis: Continue to trend -Discussed with cardiology -Lovenox 1 mg/kg twice daily, bleeding risk minimal, given lymphadenopathy and elevated tropes empiric anticoagulation Fluids/Renal: High gap metabolic acidosis: DKA: Improving -Denies alcohol or illicit substance ingestion nor salicylates ID: Elevated white count -Suspect acute phase reactant no indication for antibiotics at this time GI/Nutrition: Retrocaval mass/lymph node enlargement -Follow-up formal contrasted CT abdomen and pelvis including pelvis -PSA ordered Heme: Leukocytosis as noted above DVT prophylaxis: Lovenox Endocrine: DKA protocol: A1c 16.5 -family life educator consult Vascular access: Peripheral IVs Code Status: Full code Disposition: ICU for IV antihypertensives (2) Diabetic ketoacidosis: (3) Weight loss of more than 10% body weight: (4) Chest pain: (5) Elevated troponin: (6) Abnormal EKG: (7) Lymph node enlargement: Supervising Physician Co-Signing Physician Notes I have personally spent 70 minutes of critical care time in the direct management of this patient. This is a life/limb threatening event. This includes time spent evaluating patient, direct bedside care, chart review, placing orders, interpretation of diagnostic studies, discussion with consultants, patient, and/or family members regarding treatment decisions, as well as other required patient management activities. This time is exclusive of all separately billable procedures, and teaching time and separate from and in addition to any other critical care service time. 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 Patient reports he is healthy does not take medications however he has not seen a physician in approximately 30 years last seen a physician in 1994 for a remote episode of bursitis. Patient reports he was weighing approximately 210 pounds in August and engaged in dietary changes and then has had approximately 40 pound weight loss over the last 6 months. He also reports he has made dietary changes to avoid high sugar containing foods; however, he reports he recently changed his orange juice and has been drinking a lot of orange juice drinking a lot of water and feels extremely thirsty. The right-sided chest pain is constant there is some positional characteristics to it and it is improved after 2 mg of morphine in the emergency department. Basic laboratory analysis redemonstrated that the patient is likely suffering from diabetic ketoacidosis, I suspect the patient also has underlying untreated hypertension, he was found to have an abnormal EKG and elevated troponins which concur with diabetic ketoacidosis and severe underlying untreated hypertension creating type II ischemia. Patient will be admitted to the ICU for management with IV medications. Allergies Allergy/AdvReac Type Severity Reaction Status Date / Time No Known Allergies Allergy Unverified 03/22/24 11:15 Home Medications Medication Instructions Recorded Confirmed Type biotin-alpha lipoic 1 tab PO DAILY 03/22/24 03/22/24 History [id number] 75 mg-300 mcg tablet calcium carbonate 500 mg PO DAILY 03/22/24 03/22/24 History electrolytes, oral 1 packet PO DAILY 03/22/24 03/22/24 History multivitamin 1 tab PO DAILY 03/22/24 03/22/24 History vitamin B complex 1 tab PO DAILY 03/22/24 03/22/24 History Patient History Social History Smoking Status: Never smoker Preferred Language: Niuean Feels Safe at Home: Yes Physical Exam Physical Exam: General: Alert. nontoxic. 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) no lymphadenopathy normal male uncircumcised genitalia, testicles grossly normal no palpable masses, no inguinal hernia Rectal: Brown stool in vault no tenderness, firm prostate with no nodularity no bogginess no tenderness -Prostate exam performed after confirmation from laboratory that they had blood for PSA analysis prior to digital manipulation prostate Results & Data Results & Data Vital Signs (Past 12 Hours) Vital Signs Temp Pulse Pulse Resp BP BP Pulse Ox 03/22/24 12:00 101 H 190/108 H 98 03/22/24 11:15 103 H 18 189/123 H 98 03/22/24 10:06 91 H 97 03/22/24 10:00 103 H 18 191/118 H 95 03/22/24 10:00 97 H 03/22/24 09:12 35.9 C L 100 H 18 217/136 H 99 O2 Del Method 03/22/24 12:00 Room Air 03/22/24 11:15 Room Air 03/22/24 10:06 Room Air 03/22/24 10:00 Room Air 03/22/24 10:00 03/22/24 09:12 Room Air Critical Care Results & Data Vital Signs (Past 12 Hours) Vital Signs Temp Pulse Pulse Resp BP BP Pulse Ox 03/22/24 12:00 101 H 190/108 H 98 03/22/24 11:35 98 H 18 199/118 H 98 03/22/24 11:15 103 H 18 189/123 H 98 03/22/24 10:06 91 H 97 03/22/24 10:00 103 H 18 191/118 H 95 03/22/24 10:00 97 H 03/22/24 09:12 35.9 C L 100 H 18 217/136 H 99 O2 Del Method 03/22/24 12:00 Room Air 03/22/24 11:35 03/22/24 11:15 Room Air 03/22/24 10:06 Room Air 03/22/24 10:00 Room Air 03/22/24 10:00 03/22/24 09:12 Room Air Lab & Micro Results (Past 24 Hours) 2 RBC 5.43 M/uL (4.70-6.10) 03/22/24 WBC 10.84 K/ul (4.8-10.8) H 03/22/24 Hgb 16.6 g/dl (14.0-18.0) 03/22/24 Hct 50.4 % (42.0-52.0) 03/22/24 MCV 92.8 fL (80.0-100.0) 03/22/24 MCH 30.6 pg (25.0-34.0) 03/22/24 MCHC 32.9 g/dL (32.0-36.0) 03/22/24 RDW Standard Deviation 43.4 fL (36.4-46.3) 03/22/24 RDW Coefficient of Variation 12.7 % (11.5-14.5) 03/22/24 Plt Count 232 K/uL (130-400) 03/22/24 MPV 10.8 fL (9.4-12.4) 03/22/24 Neutrophils (%) (Auto) 89.4 % 03/22/24 Lymphocytes (%) (Auto) 5.9 % 03/22/24 Monocytes # (Auto) 0.41 K/uL (0.11-0.59) 03/22/24 Eosinophils # (Auto) 0.00 K/uL (0.00-0.50) 03/22/24 Immature Granulocyte % (Auto) 0.3 % 03/22/24 Neutrophils # (Auto) 9.69 K/uL (1.40-6.50) H 03/22/24 Lymphocytes # (Auto) 0.64 K/uL (1.20-3.40) L 03/22/24 Monocytes # (Auto) 0.41 K/uL (0.11-0.59) 03/22/24 Eosinophils # (Auto) 0.00 K/uL (0.00-0.50) 03/22/24 Basophils # (Auto) 0.07 K/uL (0.00-0.20) 03/22/24 Immature Granulocyte # (Auto) 0.03 K/uL (0.01-0.20) 4 Na 130 mmol/L (136-145) L 03/22/24 K 4.8 mmol/L (3.5-5.1) 03/22/24 Cl 92 mmol/L (98-107) L 03/22/24 CO2 14 mmol/L (21-32) L 03/22/24 Anion Gap 24 (3-11) H 03/22/24 BUN 23 mg/dl (6-23) 03/22/24 Creatinine 1.34 mg/dl (0.6-1.4) 03/22/24 Estimated GFR ( Amer) 65.3 ml/min 03/22/24 Estimated GFR (Non-Af Amer) 56.4 ml/min 03/22/24 BUN/Creatinine Ratio 17.2 (10-20) 03/22/24 Glu 611 mg/dl (70-99(Fasting)) H* 03/22/24 Ca 10.7 mg/dl (8.6-10.3) H 03/22/24 Phosphorus Level 5.8 mg/dl (2.5-4.9) H 03/22/24 Total Bilirubin 0.9 mg/dl (0.2-1.0) 03/22/24 AST 22 U/L (13-39) 03/22/24 ALT 35 U/L (7-52) 03/22/24 Alkaline Phosphatase 118 U/L (34-104) H 03/22/24 TP 8.9 gm/dl (6.0-8.3) H 03/22/24 Albumin 5.0 gm/dl (3.4-5.0) 03/22/24 Globulin 3.9 gm/dl (2.5-4.0) 03/22/24 Albumin/Globulin Ratio 1.3 (0.9-2) 03/22/24 Mg 2.2 mg/dl (1.7-2.4) 03/22/24 09:52 Calcium Level 10.7 mg/dl (8.6-10.3) H 03/22/24 09:52 Venous Blood pH 7.15 (7.36-7.41) L 03/22/24 10:26 Venous Blood Partial Pressure CO2 42 mmHg (38-50) 03/22/24 10:2 6 Venous Blood Partial Pressure O2 50 mmHg 03/22/24 10:26 Venous Blood HCO3 15 mmol/L 03/22/24 10:26 Venous Blood Base Excess -13.8 mEq/L 03/22/24 10:26 Venous Blood Oxygen Saturation 76.0 % 03/22/24 10:26 Arterial Blood pH 7.22 (7.35-7.45) L 03/22/24 11:37 Arterial Blood Partial Pressure CO2 26 mmHg (35-46) L 03/22/24 11:37 Arterial Blood Partial Pressure O2 94 mmHg (80-95) 03/22/24 11: 37 Arterial Blood HCO3 11 mmol/L (19-24) L 03/22/24 11:37 Arterial Blood Base Excess -15.5 mEq/L (-9-1.8) L 03/22/24 11:3 7 Arterial Blood Oxygen Saturation 97.5 % (90-95) H 03/22/24 11:3 7 Blood Gas Oxygen Given Room Air 03/22/24 11:37 Dann Test Pos (Pos) 03/22/24 11:37 Diagnostic Findings (Past 24 Hours) Chest X-Ray 03/22/24 09:50 SINGLE VIEW CHEST CLINICAL HISTORY: Atypical chest pain. FINDINGS: An AP, portable, upright chest radiograph is obtained. No prior studies are available for comparison at the time of dictation. The cardiomediast inal silhouette is unremarkable. There is elevation of the right hemidiaphragm. The lungs and pleural spaces are clear. No pneumothorax is seen. The bony thorax is grossly intact. IMPRESSION: No active disease in the chest. ACT 112: Negative or not required by law. Electronically signed by: Félix Van M.D. 03/22/2024 10:31 AM Abdomen CTA 03/22/24 09:59 CT ANGIOGRAM OF THE ABDOMEN COMBO CLINICAL HISTORY: Low back pain. COMPARISON STUDY: No priors. TECHNIQUE: Before and following the IV administration of 112 cc of Optiray 320, CT angiogram of the abdomen was performed from the lung bases the pelvic and. Images are reviewed in the axial, sagittal, and coronal planes. 3-D MIPS images are created and assessed. IV contrast was administered without complication. A dose lowering technique was utilized adhering to the principles of ALARA. FINDINGS: Lower chest: The heart is enlarged and without pericardial effusion. There are coronary artery calcifications. There is mild ectasia of the partially visualized ascending thoracic aorta. This measures up to 3.7 cm in diameter. There is elevation of the right hemidiaphragm and bibasilar scarring/atelectasis. No airspace consolidation or pleural effusion is identified. A small hiatal hernia is noted. Liver: The contrast-enhanced liver is normal in size, contour, and attenuation. There is no intrahepatic biliary ductal dilatation. The main portal veins appear patent. Gallbladder: Unremarkable. Spleen: Normal in size and attenuation noting heterogeneous arterial phase enhancement. Pancreas: Unremarkable. Adrenal glands: Unremarkable. Kidneys: The contrast enhanced kidneys are normal in size and without hydronephrosis. The kidneys enhance symmetrically. No renal calculi are identified on the unenhanced series and there is no proximal ureteral stone. Abdominal aorta and iliac arteries: The abdominal aorta is normal in course and caliber noting mild atherosclerotic calcification. The abdominal aorta is widely patent. No dissection is seen. Imaged portions of the common iliac arteries are widely patent. Major branches of the abdominal aorta: The celiac trunk, superior mesenteric, and inferior mesenteric arteries are widely patent. Hepatic arterial anatomy is conventional. The splenic artery is patent. There are 2 renal arteries seen bilaterally. These are widely patent. Bowel: Imaged portions of the small bowel and colon show no evidence of obstruction. There is moderate colonic fecal retention. The appendix is well- visualized and normal. Peritoneum: There is no intraperitoneal free air or abdominal ascites. There is a small fat-containing umbilical hernia. Lymphadenopathy: There is a pathologically enlarged retrocaval lymph node/mass lesion seen on image #119. This measures 3.6 x 3.9 x 2.9 cm. No additional pathologically enlarged lymph nodes are identified in the abdomen. Skeletal structures: There is mild lumbosacral spondylosis. No destructive bony lesions are seen. IMPRESSION: 1. Unremarkable CT angiogram of the abdominal aorta and its major branches. 2. No acute infectious or inflammatory findings are identified in the abdomen. 3. There is a 3.9 cm pathologically enlarged retrocaval lymph node or mass lesion. This is pathologically indeterminant, and neoplasm is the diagnosis of exclusion. Consider correlation with scrotal ultrasound and serum PSA levels as well as dedicated imaging of the pelvis. 4. No additional pathologically enlarged lymph nodes are identified in the abdomen. 5. Additional findings as above. ACT 112: Positive. There are findings on this exam that require communication between the performing entity and the patient following Patient Test Result Information Act ([place] Act 112) guidelines. Electronically signed by: Félix Van M.D. 03/22/2024 11:38 AM Chest CTA 03/22/24 09:59 CHEST CTA for AORTIC DISSECTION CT DOSE: 2556.7 mGy.cm HISTORY: rt sided chest pain TECHNIQUE: Multiaxial CT images of the chest were performed both before and after the intravenous administration of contrast to evaluate the aorta. 3D/MIP images were also obtained. Sagittal and coronal reformations were also reviewed. A dose lowering technique was utilized adhering to the principles of ALARA. COMPARISON STUDY: None. FINDINGS: No acute fractures within the chest. The ascending thoracic aorta measures up to 3.8 cm in diameter. No evidence for an aortic dissection. The central pulmonary arteries are patent. There is mild elevation of the right hemidiaphragm. The heart is normal in size. Mild coronary artery calcifications are noted. No pleural or pericardial effusions. The abdominal structures will be reported on the same day abdomen and pelvis CT. There is a partially visualized single enlarged retrocaval mass/lymph node on image 225. This measures 3.7 cm. Normal esophagus. No mediastinal or hilar lymphadenopathy. The central airways are patent. No pneumothorax. No focal lung consolidations to suggest a pneumonia. No evidence for pulmonary edema. Right basilar linear densities favor subsegmental atelectasis or scarring. IMPRESSION: 1. No evidence for an aortic dissection. 2. There is a partially visualized 3.7 cm right retrocaval mass/lymph node within the abdomen. This is is highly suspicious for a malignancy. This is better appreciated on the same day abdomen and pelvis CT. ACT 112: Positive. There are findings on this exam that require communication between the performing entity and the patient following Patient Test Result Information Act ([place] Act 112) guidelines. Electronically signed by: Clint Barakat M.D. 03/22/2024 11:[address] 03/22/24 09:59 CT head/brain wo con CLINICAL HISTORY: 63 years-old Male with weakness. Acute weakness TECHNIQUE: Multiple axial CT images of the head were obtained without contrast. A dose lowering technique was utilized adhering to the principles of ALARA. CT DOSE: 625.8 mGy.cm COMPARISON: None. FINDINGS: No acute intracranial hemorrhage, midline shift, intracranial mass, hydrocephalus, territorial ischemia or abnormal extra-axial collection. Mild involutional changes. The calvarium is intact. Prior bilateral injury repair. The paranasal sinuses, mastoid air cells, and middle ear cavities are clear. IMPRESSION: No acute intracranial abnormality. ACT 112: Negative or not required by law. The above report was generated using voice recognition software. It may contain grammatical, syntax or spelling errors. Electronically signed by: Kenny Zuleta M.D. 03/22/2024 11:03 AM RT Ventilator Mngmt (Last Documented) Ventilator Ordered Settings Respiratory Rate 18 03/22/24 11:35 Ventilator - PT Measurements Respiratory Rate 18 Coding Level of Care Code 63004 CRITICAL CARE 1ST 30-74M Diagnoses Hypertensive emergency I16.1 Diabetic ketoacidosis without coma associated with type 2 diabetes mellitus E11.10 Diabetes mellitus complication detail: without coma Diabetes mellitus type: type 2 Weight loss of more than 10% body weight R63.4 Chest pain R07.9 Elevated troponin R79.89 Abnormal EKG R94.31 Lymph node enlargement R59.9 (2) Diabetic ketoacidosis Diabetes mellitus complication detail: without coma Diabetes mellitus type: type 2 Qualified Code(s): E11.10 - Type 2 diabetes mellitus with ketoacidosis without coma
[2024-03-22] MEDS: METOPROLOL TARTRATE 1 MG/ML VIAL IV STA ×2 (12:17→12:51)
[2024-03-22 12:26] LABS: Estimated Average Glucose 427 mg/dl; Hemoglobin A1C 16.5 % (4.5-5.6)
[2024-03-22] MEDS: SODIUM CHLORIDE 0.9% 1,000 ML IV ONE (12:32)
--- NOTE | 2024-03-22 12:53 | Electrocardiogram Report ---
Test Reason : Blood Pressure : / mmHG Vent. Rate : 088 BPM Atrial Rate : 088 BPM P-R Int : 152 ms QRS Dur : 086 ms QT Int : 364 ms P-R-T Axes : 037 020 046 degrees QTc Int : 440 ms Normal sinus rhythm Inferior infarct , possibly acute ACUTE MD / STEMI Consider right ventricular involvement in acute inferior infarct Abnormal ECG No previous ECGs available Confirmed by Wesley Fox ([id number]) on 03/22/2024 12:52:38 PM Referred By: REFERRED SELF Confirmed By:Bennett Fox
[2024-03-22 13:04] LABS: Free PSA % 24.1 %; Prostate SpecificAg Diagnostic 0.54 ng/ml (0-4)
[2024-03-22 13:29] LABS: Appearance Urine Clear (Clear); Bacteria Urine Automated None Seen (None Seen); Bilirubin Urine Negative (Negative); Blood Urine Negative (Negative); Color Urine Yellow; Epithelial Cell Urine Auto 0-2 /hpf (0-2); Glucose Urine UA 3+ (Negative); Ketones Urine 4+ (Negative); Leukocyte Esterase Urine Negative (Negative); Nitrite Urine Negative (Negative); Protein Urine Trace (Negative); RBC Urine Automated 0-2 /hpf (0-2); Specific Gravity Urine 1.042 (1.000-1.030); Urobilinogen Urine Negative (Negative); WBC Urine Automated 0-5 /hpf (0-5)
[2024-03-22] MEDS ORDERED: ICU Protocol for HYPERglycemia SCH (13:37)
[2024-03-22 13:51] LABS: Mucus Urine Present (None Prsent)
[2024-03-22] MEDS: lisinopril 20 MG TAB PO STA (14:01)
[2024-03-22] MEDS: METOPROLOL TARTRATE 25 MG TAB PO SCH (14:01)
[2024-03-22] MEDS: ENOXAPARIN INJ 60 MG/0.6 ML SYR SQ SCH (14:01)
[2024-03-22] MEDS: LANTUS PER UNIT CHARGE SQ SCH (14:04)
[2024-03-22] MEDS: INSULIN ASPART PER UNIT CHARGE SC SCH (14:05)
[2024-03-22] MEDS: SODIUM CHLORIDE 0.9% 1,000 ML IV SCH (14:07)
[2024-03-22] MEDS: DKA GOAL RANGE 150-250 mg/dl ONE (14:07)
[2024-03-22] MEDS: niCARdipine 25 MG in SODIUM CHLORIDE 0.9% 240 ML IV SCH (14:20)
[2024-03-22] MEDS: PLASMA-LYTE A 1,000 ML IV SCH (15:30)
[2024-03-22 15:32] LABS: BUN Creatinine Ratio 19.6 (10-20); Calcium 9.5 mg/dl (8.6-10.3); Creatinine Clr Calc Pharmacy 81.5 ml/min; Est GFR (African American) 96.6 ml/min; Est GFR (Non-African American) 83.3 ml/min; Magnesium 1.9 mg/dl (1.7-2.4); Phosphorus 3.1 mg/dl (2.5-4.9); Potassium 4.2 mmol/L (3.5-5.1)
[2024-03-22 15:47] LABS: Thyroid Stimulating Hormone 1.14 uIu/ml (0.300-4.500)
[2024-03-22] MEDS: ASPIRIN/ALUM/MAGNES/CAL CARB 325 MG TAB PO ONE (16:04)
[2024-03-22 19:09] LABS: BUN Creatinine Ratio 18.9 (10-20); Calcium 9.4 mg/dl (8.6-10.3); Creatinine Clr Calc Pharmacy 87.9 ml/min; Est GFR (African American) 105.7 ml/min; Est GFR (Non-African American) 91.2 ml/min; Magnesium 1.9 mg/dl (1.7-2.4); Phosphorus 2.2 mg/dl (2.5-4.9); Potassium 3.9 mmol/L (3.5-5.1)
[2024-03-22] MEDS: D5W AND 1/2NSS + 20MEQ KCL 20 MEQ/1,000 ML BAG IV SCH (19:14)
[2024-03-22] MEDS: PNEUMOCOCCAL VACCINE (PCV20) 20-VAL CONJ-DIP CRM/PF 0.5 ML SYR IM ONE (19:51)
[2024-03-22] MEDS: PROPOFOL IV EMULSION 10 MG/ML 100 ML VIAL IV ONE (19:51)
[2024-03-22] MEDS: RAPID SEQUENCE INDUCTION BAG ONE (19:51)
[2024-03-22 23:55] LABS: BUN Creatinine Ratio 18.3 (10-20); Calcium 8.7 mg/dl (8.6-10.3); Creatinine Clr Calc Pharmacy 96.4 ml/min; Est GFR (African American) 109.8 ml/min; Est GFR (Non-African American) 94.8 ml/min; Magnesium 1.8 mg/dl (1.7-2.4); Phosphorus 2.3 mg/dl (2.5-4.9); Potassium 3.8 mmol/L (3.5-5.1)
[2024-03-23] MEDS: OPTIRAY 320 100ml IV ONE (00:12)
[2024-03-23] MEDS: POTASSIUM CHLORIDE CRTAB 20 MEQ TABCR PO STA ×2 (00:38→09:48)
[2024-03-23] MEDS: DICLOFENAC SOD 1% GEL 100 GM TUBE EXT PRN (00:44)
[2024-03-23] MEDS: ACETAMINOPHEN 325 MG TAB PO PRN (00:44)
--- NOTE | 2024-03-23 02:31 | CT Scan Report ---
Exam(s): CT ABDOMEN + PELVIS With Contrast IV Amt: 93 ml opti 320 EXAM: CT Abdomen and Pelvis With Intravenous Contrast CLINICAL HISTORY: Reason for exam: retrocaval lymph node, normal exam. TECHNIQUE: Axial computed tomography images of the abdomen and pelvis with intravenous contrast. CTDI is 19.51 mGy and DLP is 1027.65 mGy-cm. Automated exposure control was utilized for the study. A dose lowering technique was utilized adhering to the principles of ALARA. CONTRAST: Patient received 93 ml opti 320 of IV contrast COMPARISON: CT abdomen on 03/22/2024 FINDINGS: Lung bases: Unremarkable. No mass. No consolidation. ABDOMEN: Liver: Unremarkable. No mass. Gallbladder and bile ducts: Vicarious excretion of contrast in the gallbladder. No calcified stones. No ductal dilation. Pancreas: Unremarkable. No mass. No ductal dilation. Spleen: Small splenule. Adrenals: Unremarkable. No mass. Kidneys and ureters: Mild excreting contrast in the renal collecting systems. No hydronephrosis. Stomach and bowel: Evaluation of the stomach is limited by underdistention. No mucosal thickening. No bowel obstruction or inflammation. PELVIS: Appendix: Normal appendix. Bladder: Excreted contrast within the bladder. Reproductive: Unremarkable as visualized. ABDOMEN and PELVIS: Intraperitoneal space: Unremarkable. No free air. No significant fluid collection. Bones/joints: Degenerative changes of the spine. No acute fracture. No dislocation. Soft tissues: Small fat-containing bilateral inguinal hernias. Vasculature: Phleboliths in the pelvis. Mild atherosclerotic changes in the aorta. No aortic aneurysm or dissection. Lymph nodes: Mass again seen, posterior to the IVC measuring 3.8 x 3.0 x 3.5 cm, concerning for an enlarged retrocaval lymph node. Mild surrounding fat stranding. Cause for the enlarged lymph node is not identified on this exam. IMPRESSION: Mass again seen, posterior to the IVC measuring 3.8 x 3.0 x 3.5 cm, concerning for an enlarged retrocaval lymph node. Mild surrounding fat stranding. Cause for the enlarged lymph node is not identified on this exam. Electronically signed by: Becca Shoemaker M.D. 03/23/24 02:30 AM
[2024-03-23 03:15] LABS: Calcium 9.3 mg/dl (8.6-10.3); Creatinine Clr Calc Pharmacy 105.4 ml/min; Est GFR (African American) 113.9 ml/min; Est GFR (Non-African American) 98.3 ml/min; Magnesium 1.8 mg/dl (1.7-2.4); Potassium 3.6 mmol/L (3.5-5.1)
--- NOTE | 2024-03-23 07:38 | Cardiology Progress Note ---
Date of Service March 23, 2024 Assessment & Plan (1) Hypertensive emergency: (2) Elevated troponin: (3) Diabetic ketoacidosis: Plan Impression: 63-year-old male admitted for hypertensive urgency and DKA. Plan: Hypertensive emergency: Markedly hypertensive with metabolic derailment Abnormal EKG changes with ST elevation noted inferior leads + High-sensitivity troponin elevated ~500.; likely due to strain/demand from marked hypertension. Echo with preserved LVEF, no new WMA, or significant valve disease. -Recommend aggressive management of blood pressure: -Increase metoprolol tartrate to 50 mg TID; will give an addition 25 mg this am. -Agree with the use of lisinopril for renal protection given underlying diabetes. Titrate as appropriate. -Given degree of hypertension patient will likely require at minimum 3 blood pressure medications to obtain adequate control. -Start ASA 81 mg daily -LDL above goal (under 70)- recommend starting Crestor 10 mg daily. -Once BP and glucose is under control will consider stress testing- increase risk for coronary disease given uncontrolled DM and hypertension DKA: Glucose greater than 600. ED treated with IV fluids and insulin. A1c 16.5% -Will defer to primary service/ICU team regarding management. Case discussed with Dr. Diop. Cardiology will follow. I spent a total of 30 minutes on the date of service in preparation, delivery, and documentation of the care provided to the patient excluding any time spent in the performance of separately billed services. DANIEL Mcdonald Department of Cardiology, [facility] This chart was completed in part utilizing Speech Voice Recognition Software. Grammatical errors, random word insertions, pronoun errors, and incomplete sentences are an occasional consequence of this system due to software limitations, ambient noise, and hardware issues. Any formal questions or concerns about the content, text, or information contained within the body of this dictation should be directly addressed to the provider for clarification. Admission and Anticipated Discharge Date Admission Date: March 22, 2024 Supervising Physician Co-Signing Physician Notes Patient was seen and personally examined. Full assessment and plan as outlined by advanced provider. Care and management discussed and personally endorsed. 63-year-old male with limited cardiac and medical care recently who presented with symptoms of right-sided chest pain and shortness of breath of 2 days duration. Acute ER evaluation demonstrated marked metabolic derangement with evidence of DKA and hypertensive urgency/emergency. Initial EKG with ST elevation inferior leads III and aVF. Echocardiogram demonstrates preserved wall motion and no significant valvular Suspect hypertensive mediated EKG and enzyme rise. Underlying obstructive coronary disease not completely excluded Patient currently asymptomatic at time of exam Plan as above, titrate beta-grazyna higher. EKG today Troponin elevation likely secondary to demand but agree with anticoagulation. Echocardiogram with hyperdynamic LV function I spent a total of 25 minutes on the date of service in preparation, delivery, and documentation of the care provided to the patient excluding any time spent in the performance of separately billed s Subjective 63-year-old male with limited cardiac and medical care recently who presented with symptoms of right-sided chest pain and shortness of breath of 2 days duration. Acute ER evaluation demonstrated marked metabolic derangement with evidence of DKA and hypertensive urgency/emergency. Initial EKG with ST elevation inferior leads III and aVF. Echocardiogram demonstrates preserved wall motion and no significant valvular. 03/22/2024: Glucose greater than 600; transferred to ICU and started on insulin drip Markedly hypertensive--treated with two 5 mg doses of IV Lopressor and started on metoprolol tartrate 25 mg twice daily, Lisinopril 20 mg daily, and nicardipine drip. 03/23/2024: Glucose levels improving with insulin drip. Blood pressures remain hypertensive with systolics averaging in the 150s to 170s. Telemetry: ST 100s-110s I/O: + 4.5L Weight: 80.7 kg >> 81.3 kg Upon entrance into the room patient sitting up in the chair eating breakfast. Feeling better since admission. Right sided chest pain has resolved. No longer nauseated. No vomiting. Denies exertional chest pain, shortness of breath, palpitations, dizziness, syncope or near syncope. No orthopnea, PND, or increased lower extremity edema. No fever, chills, cough, hematochezia, melena, or hemoptysis. Review of Systems Review of Systems: All systems reviewed & are unremarkable except as noted in HPI & below Physical Exam Constitutional: WD/WN, vitals as above no acute distress Eyes: PERRL, conjunctivae normal, anicteric sclerae Neck: normal visual inspection and trachea midline Respiratory: normal respiratory effort, lungs clear to auscultation Cardiovascular: RRR, no murmur, no edema Heart Sounds: normal S1 and normal S2; no murmur Vessels: no JVD Extremities: no edema Gastrointestinal (Abdomen): normal bowel sounds, soft, nontender, no hepatosplenomegaly Musculoskeletal: no cyanosis or clubbing, extremities motor strength 5/5 Skin: no rashes, warm and dry Neurologic: PERRL, EOMI, accommodation nl, no face palsy, no dysarthria Psychiatric: A+Ox3, euthymic affect Results & Data Vital Signs (Past 12 Hours) Vital Signs Temp Pulse Resp BP Pulse Ox 03/23/24 02:30 37 C 03/23/24 00:54 100 H 20 96 03/23/24 00:48 101 H 22 97 03/23/24 00:41 170/93 H 03/23/24 00:27 102 H 24 98 03/22/24 23:48 97 H 22 96 03/22/24 23:33 90 22 97 03/22/24 23:27 92 H 17 97 03/22/24 23:12 94 H 23 97 03/22/24 23:09 165/91 H 03/22/24 23:03 88 21 98 03/22/24 23:00 96 H 16 96 03/22/24 22:51 87 22 96 03/22/24 22:48 95 H 21 99 03/22/24 22:39 176/98 H 03/22/24 22:39 176/98 H 03/22/24 22:36 93 H 20 98 03/22/24 22:12 89 20 97 03/22/24 22:09 166/91 H 03/22/24 22:09 166/91 H 03/22/24 22:00 37.1 C 03/22/24 21:57 97 H 26 H 97 03/22/24 21:48 96 H 26 H 98 03/22/24 21:21 91 H 25 H 96 03/22/24 21:18 90 23 98 03/22/24 21:09 174/101 H 03/22/24 21:09 174/101 H 03/22/24 21:09 96 H 24 96 03/22/24 21:03 103 H 22 98 03/22/24 20:51 95 H 20 95 03/22/24 20:42 105 H 16 98 03/22/24 20:40 171/103 H 03/22/24 20:39 113 H 32 H 97 03/22/24 20:30 98 H 23 97 07/10/24 20:24 100 H 23 98 03/22/24 20:12 104 H 24 97 03/22/24 20:09 191/104 H 03/22/24 19:45 187/107 H 03/22/24 19:45 187/107 H 03/22/24 19:42 93 H 26 H 97 03/22/24 19:39 190/106 H 03/22/24 19:39 190/106 H 03/22/24 19:39 190/106 H 03/22/24 19:33 94 H 17 98 Laboratory Results Cardiac Enzymes 03/22/24 03/22/24 Range/Units 09:52 11:37 AST 22 (13-39) U/L Troponin I High Sens 552.4 H* 591.7 H* (0-20) pg/ml Lipids 03/23/24 Range/Units 07:17 Triglycerides 175 H (0-150) mg/dl Cholesterol 215 H (0-200) mg/dl HDL Cholesterol 45 mg/dl Cholesterol/HDL Ratio 4.8 (0-5) CBC 03/22/24 Range/Units 09:52 WBC 10.84 H (4.8-10.8) K/ul RBC 5.43 (4.70-6.10) M/uL Hgb 16.6 (14.0-18.0) g/dl Hct 50.4 (42.0-52.0) % Plt Count 232 (130-400) K/uL Neut # (Auto) 9.69 H (1.40-6.50) K/uL Lymph # (Auto) 0.64 L (1.20-3.40) K/uL Letcher # (Auto) 0.41 (0.11-0.59) K/uL Eos # (Auto) 0.00 (0.00-0.50) K/uL Baso # (Auto) 0.07 (0.00-0.20) K/uL Comprehensive Metabolic Panel 03/22/24 03/22/24 03/22/24 Range/Units 09:52 14:54 18:38 Sodium 130 L 138 137 (136-145) mmol/L Potassium 4.8 4.2 3.9 (3.5-5.1) mmol/L Chloride 92 L 103 103 (98-107) mmol/L Carbon Dioxide 14 L 18 L 22 (21-32) mmol/L BUN 23 19 17 (6-23) mg/dl Creatinine 1.34 0.97 D 0.90 (0.6-1.4) mg/dl Glucose 611 H* 248 H 179 H (70-99(Fasting)) mg/dl Calcium 10.7 H 9.5 9.4 (8.6-10.3) mg/dl AST 22 (13-39) U/L ALT 35 (7-52) U/L Alkaline Phosphatase 118 H (34-104) U/L Total Protein 8.9 H (6.0-8.3) gm/dl Albumin 5.0 (3.4-5.0) gm/dl 03/22/24 03/23/24 03/23/24 Range/Units 23:09 02:40 07:17 Sodium 136 133 L 135 L (136-145) mmol/L Potassium 3.8 3.6 3.6 (3.5-5.1) mmol/L Chloride 104 102 104 (98-107) mmol/L Carbon Dioxide 22 22 24 (21-32) mmol/L BUN 15 12 11 (6-23) mg/dl Creatinine 0.82 0.75 0.71 (0.6-1.4) mg/dl Glucose 190 H 163 H 188 H (70-99(Fasting)) mg/dl Calcium 8.7 9.3 8.5 L (8.6-10.3) mg/dl AST (13-39) U/L ALT (7-52) U/L Alkaline Phosphatase (34-104) U/L Total Protein (6.0-8.3) gm/dl Albumin (3.4-5.0) gm/dl Intake and Output 03/22/24 03/23/24 03/23/24 22:59 06:59 14:59 Intake Total 2114.514 / 6405.800 2242.812 / 6405.800 Output Total 850 / 1850 1000 / 1850 500 / 500 Balance 1264.514 / 4555.800 1242.812 / 4555.800 -500 / -500 Intake: IV 2114.514 / 6405.800 2242.812 / 6405.800 D5w and 1/2Nss + 20Meq KCl 20 1904.583 / 1904.583 meq In 1,000 ml @ 175 mls/hr IV .Q5H43M [facility] Rx#:[id number] Insulin Regular 250 units In 13.264 / 96.634 61.563 / 96.634 Sodium Chloride 0.9% 247.5 ml @ 4.6 UNITS/HR 4.6 mls/hr IV . Q24H [facility] Rx#:[id number] Plasma-Lyte A 1,000 ml @ 200 1000 / 1000 mls/hr IV .Q5H [facility] Rx#:[id number] Sodium Chloride 0.9% 1,000 ml @ 1000 / 1000 999 mls/hr IV .Q1H1M ONE Rx#: [id number] niCARdipine 25 mg In Sodium 101.250 / 404.583 276.666 / 404.583 Chloride 0.9% 240 ml @ 2.5 MG/ HR 25 mls/hr IV .Q10H [facility] Rx#: [id number] Output: Urine 850 / 1850 1000 / 1850 500 / 500 Other: Weight 81.3 kg Weight Measurement Method Built in [facility] (3) Diabetic ketoacidosis Diabetes mellitus complication detail: without coma Diabetes mellitus type: type 2 Qualified Code(s): E11.10 - Type 2 diabetes mellitus with ketoacidosis without coma
[2024-03-23] MEDS ORDERED: Nursing to Pharmacy Communication SCH (07:45)
[2024-03-23 07:57] LABS: BUN Creatinine Ratio 15.5 (10-20); Calcium 8.5 mg/dl (8.6-10.3); Chol HDL Ratio 4.8 (0-5); Creatinine Clr Calc Pharmacy 111.4 ml/min; Est GFR (African American) 116.5 ml/min; Est GFR (Non-African American) 100.6 ml/min; Magnesium 1.7 mg/dl (1.7-2.4); Phosphorus 1.9 mg/dl (2.5-4.9); Potassium 3.6 mmol/L (3.5-5.1)
[2024-03-23] MEDS: lisinopril 20 MG TAB PO SCH (08:17)
[2024-03-23] MEDS: INSULIN ASPART PER UNIT CHARGE SC SCH ×3 (08:23→23:45)
[2024-03-23] MEDS: METOPROLOL TARTRATE 25 MG TAB PO ONE (08:53)
[2024-03-23] MEDS ORDERED: ROSUVASTATIN CALCIUM 10 MG TAB PO SCH (09:00)
--- NOTE | 2024-03-23 09:11 | Critical Care Progress Note ---
Date of Service March 23, 2024 Assessment & Plan (1) Hypertensive emergency: Plan: Reason Critically Ill: 63-year-old male without significant past medical history with hypertensive emergency PLAN: Resp: CV: Hypertensive emergency -Tolerating BP -Increase metoprolol, took lisinopril -Lipid panel reviewed on statin therapy Elevated troponins, abnormal EKG -Suspect type II ischemia related to hypertensive crisis: Continue to trend -Reviewed cardiology consultation -Discontinuing Lovenox, patient ambulatory Fluids/Renal: High gap metabolic acidosis: DKA: Improving -Denies alcohol or illicit substance ingestion nor salicylates ID: Elevated white count -Suspect acute phase reactant no indication for antibiotics at this time GI/Nutrition: Retrocaval mass/lymph node enlargement -PSA within normal limits, CT reviewed, ordering testicular ultrasound -Discussed with radiology may necessitate tissue sampling from general surgery Heme: Leukocytosis as noted above DVT prophylaxis: Lovenox Endocrine: DKA protocol: A1c 16.5 -financial services manager consult Vascular access: Peripheral IVs Code Status: Full code Disposition: If patient can remain off IV antihypertensives for greater than 6 hours would be stable for downgrade out of ICU. (2) Diabetic ketoacidosis: (3) Weight loss of more than 10% body weight: (4) Chest pain: (5) Elevated troponin: (6) Abnormal EKG: (7) Lymph node enlargement: Admission and Anticipated Discharge Date Admission Date: March 22, 2024 Supervising Physician Co-Signing Physician Notes I have personally spent 70 minutes of critical care time in the direct management of this patient. This is a life/limb threatening event. This includes time spent evaluating patient, direct bedside care, chart review, placing orders, interpretation of diagnostic studies, discussion with consultants, patient, and/or family members regarding treatment decisions, as well as other required patient management activities. This time is exclusive of all separately billable procedures, and teaching time and separate from and in addition to any other critical care service time. Subjective Feels well, however, does have back pain which she attributes being unable to get comfortable in hospital bed. Prefers to sit in chair. Physical Exam Physical Exam: General: Alert. nontoxic. Skin: Warm, dry, Head: Atraumatic Ears, nose, mouth and throat: airway patent Cardiovascular: Normal peripheral perfusion Respiratory: no respiratory distress Gastrointestinal: Non distended Musculoskeletal: No deformity Results & Data Results & Data Vital Signs (Past 12 Hours) Vital Signs Temp Pulse Resp BP Pulse Ox 03/23/24 08:00 120 H 03/23/24 08:00 36.8 C 03/23/24 07:32 101 H 154/86 H 03/23/24 02:30 37 C 03/23/24 00:54 100 H 20 96 03/23/24 00:48 101 H 22 97 03/23/24 00:41 170/93 H 03/23/24 00:27 102 H 24 98 03/22/24 23:48 97 H 22 96 03/22/24 23:33 90 22 97 03/22/24 23:27 92 H 17 97 03/22/24 23:12 94 H 23 97 03/22/24 23:09 165/91 H 03/22/24 23:03 88 21 98 03/22/24 23:00 96 H 16 96 03/22/24 22:51 87 22 96 03/22/24 22:48 95 H 21 99 03/22/24 22:39 176/98 H 03/22/24 22:39 176/98 H 03/22/24 22:36 93 H 20 98 03/22/24 22:12 89 20 97 03/22/24 22:09 166/91 H 03/22/24 22:09 166/91 H 03/22/24 22:00 37.1 C 03/22/24 21:57 97 H 26 H 97 03/22/24 21:48 96 H 26 H 98 03/22/24 21:21 91 H 25 H 96 03/22/24 21:18 90 23 98 03/22/24 21:09 174/101 H 03/22/24 21:09 174/101 H 03/22/24 21:09 96 H 24 96 Coding Level of Care Code 78330 CRITICAL CARE 1ST 30-74M Diagnoses Hypertensive emergency I16.1 Diabetic ketoacidosis without coma associated with type 2 diabetes mellitus E11.10 Diabetes mellitus complication detail: without coma Diabetes mellitus type: type 2 Weight loss of more than 10% body weight R63.4 Chest pain R07.9 Elevated troponin R79.89 Abnormal EKG R94.31 Lymph node enlargement R59.9 (2) Diabetic ketoacidosis Diabetes mellitus complication detail: without coma Diabetes mellitus type: type 2 Qualified Code(s): E11.10 - Type 2 diabetes mellitus with ketoacidosis without coma
[2024-03-23] MEDS ORDERED: PHARMACY GLYCEMIC MGMT CONSULT PRN (09:36)
[2024-03-23] MEDS: ASPIRIN 81 MG ECTAB PO SCH (09:48)
[2024-03-23] MEDS: LANTUS PER UNIT CHARGE SC STA (09:49)
[2024-03-23] MEDS ORDERED: INSULIN ASPART PER UNIT CHARGE SC SCH (11:30)
[2024-03-23 11:55] LABS: BUN Creatinine Ratio 15.5 (10-20); Creatinine Clr Calc Pharmacy 111.4 ml/min; Est GFR (African American) 116.5 ml/min; Est GFR (Non-African American) 100.6 ml/min; Magnesium 1.8 mg/dl (1.7-2.4); Phosphorus 2.2 mg/dl (2.5-4.9); Potassium 3.8 mmol/L (3.5-5.1)
--- NOTE | 2024-03-23 12:00 | Ultrasound Report ---
US scrotum/testicle CLINICAL HISTORY: 63 years-old Male with retrocaval lymph node. Pathologic retroperitoneal lymphaden opathy COMPARISON STUDY: CT of same day TECHNIQUE: Real-time, grayscale, and color Doppler sonography of the testes and scrotum is performed. Images are reviewed in the transverse and longitudinal planes. FINDINGS: RIGHT HEMISCROTUM: The right testis measures 4.2 x 2.1 x 3.0 cm and the parenchyma appears unremarkab le. No intratesticular mass is seen. Normal-appearing arterial inflow is present within the right rios ticle. The right epididymal head appears normal. No varicocele. Small mildly complex hydrocele. LEFT HEMISCROTUM: The left testis measures 4.2 x 2.1 x 3.0 cm and the parenchyma appears unremarkable . No intratesticular mass is seen. Normal-appearing arterial inflow is present within the left testic le. The left epididymal head appears normal. No varicocele. Small mildly complex hydrocele. Indetermi neha extratesticular echogenic structure measures 4 x 5 x 4 mm on image 39, possibly testicular appen dage. This is likely benign. IMPRESSION: 1. No testicular torsion or mass. 2. Small mildly complex hydroceles. ACT 112: Negative or not required by law. The above report was generated using voice recognition software. It may contain grammatical, syntax o r spelling errors. Electronically signed by: Kenny Zuleta M.D. 03/23/2024 11:59 AM
[2024-03-23] MEDS: POT PHOSPHATE MONOBASIC W/ SOD TAB PO SCH (12:34)
--- NOTE | 2024-03-23 13:14 | Hospitalist Progress Note ---
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 Patient reports feeling weak and tired all along since last month. 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 He reported feeling tired and always thirsty since last Month. He is being managed for the following: Diabetic ketoacidosis Newly diagnosed diabetes Patient coming in with feeling weak/tired/thirsty associated with weight loss since last month [employer]. TSH WNL, A1c 16.5. Status post DKA protocol, now back on diet and subcutaneous insulin. Patient denies nausea, vomiting, abdominal pain. nurse informatics educator consult, glycemic pharmacy managing. Will need diabetic meds regimen in place on discharge with close follow-up with diabetic clinic. Hypertensive urgency: Admitting BP 217/136, patient started on IV antihypertens eduardo drip. Metoprolol and lisinopril has been added this admission. Continue. Blood pressure getting better. Chest pain, rule out ACS: Patient reported right-sided lower rib cage pain and attributes likely to back posturing during sleeping. Troponin elevated but flat trended between 500-600. admitting EKG with ST elevation in inferior leads. Echo with preserved ejection fraction, no new wall motion abnormality. likely demand ischemia secondary to acute hypertension. Cardiology evaluating, plan for stress test. Continue with aspirin and Lipitor. Dyslipidemia: LDL elevated at 135, given diabetes patient started on Crestor. Continue. Encourage lifestyle modification, follow-up with PCP for long-term monitoring. Retrocaval mass/lymph node enlargement: 3.8 x 3.0 x 3.5 cm mass posterior to the IVC concerning for an enlarged retrocaval lymph node. PSA WNL. Possibly will need biopsy. DVT prophylaxis: SCDs, patient ambulatory Full Code Disposition: nicardipine drip for hypertension being titrated down to off in ICU Admission and Anticipated Discharge Date Admission Date: March 22, 2024 Subjective Patient was seen and examined at bedside. Patient was sitting up in chair, on room air, NAD, resting comfortably. Patient reports improving right-sided lower rib cage pain that he attributes to bedpost during while sleeping. Patient reports improving nausea and vomiting, reports tolerating diet, denies abdominal pain. Lifestyle modification, need for regular exercise regimen and need for follow-up with PCP discussed in detail with the patient. Physical Exam Physical Exam: General- oriented x 3, not in distress, speaks in sentences with no effort or accessory muscle use Head- atraumatic Eyes- PERRL, EOMI, anicteric ENT- oropharynx clear Neck- supple, no JVD, no adenopathy, no thyromegaly; carotids +2/2, no bruits appreciated Lungs- clear to auscultation bilaterally, no rales/wheezes Heart- normal rate, regular rhythm; no murmur, no gallop, no rub appreciated Abdomen- normal bowel sounds, nondistended, soft, nontender, no masses or hepatosplenomegaly Extremities- no pretibial edema, no calf tenderness; peripheral pulses intact Neuro- alert, oriented x 3; CN 2-12 grossly intact; motor 5/5 bilaterally;sensation 100% on all extremities; no other gross focal neurologic deficits Skin- warm & dry Results & Data Results & Data Vital Signs (Past 12 Hours) Vital Signs Temp Pulse Resp BP BP Pulse Ox 03/23/24 11:02 93 H 176/99 H 03/23/24 10:32 107 H 20 164/101 H 99 03/23/24 10:06 36.7 C 03/23/24 10:02 89 21 162/98 H 97 03/23/24 09:32 89 153/94 H 03/23/24 09:02 105 H 149/75 H 03/23/24 09:00 149/75 H 03/23/24 08:02 112 H 155/83 H 03/23/24 08:00 120 H 03/23/24 08:00 36.8 C 03/23/24 07:32 101 H 154/86 H 03/23/24 02:30 37 C
--- NOTE | 2024-03-23 13:36 | Electrocardiogram Report ---
Test Reason : Blood Pressure : / mmHG Vent. Rate : 108 BPM Atrial Rate : 108 BPM P-R Int : 104 ms QRS Dur : 082 ms QT Int : 496 ms P-R-T Axes : 000 037 035 degrees QTc Int : 664 ms Sinus tachycardia with short VT Inferior infarct (cited on or before 22-MAR-2024) Prolonged QT Nonspecific ST abnormality Abnormal ECG When compared with ECG of 22-MAR-2024 09:42, VT interval has decreased QT has lengthened Confirmed by Wesley Fox ([id number] on 03/23/2024 1:36:22 PM Referred By: Michi Barrett Confirmed By:Bennett Fox
--- NOTE | 2024-03-23 13:44 | Electrocardiogram Report ---
Test Reason : Blood Pressure : / mmHG Vent. Rate : 085 BPM Atrial Rate : 085 BPM P-R Int : 150 ms QRS Dur : 084 ms QT Int : 324 ms P-R-T Axes : 019 014 013 degrees QTc Int : 385 ms Normal sinus rhythm Inferior infarct (cited on or before 22-MAR-2024) Abnormal ECG When compared with ECG of 23-MAR-2024 05:45, (unconfirmed) QT has shortened Confirmed by Wesley Fox ([id number] on 03/23/2024 1:44:19 PM Referred By: Michi Barrett Confirmed By:Bennett Fox
[2024-03-23] MEDS ORDERED: METOPROLOL TARTRATE 50 MG TAB PO SCH (14:00)
--- NOTE | 2024-03-23 15:02 | Pharmacy Report ---
Pharmacy Glycemic Short Note 2 - Date of Service March 23, 2024 - Glycemic Short BSG Results (Last 24 hours): 03/22/24 03/22/24 03/22/24 14:54 15:35 16:33 Glucose 248 H POC Glucose 218 H 204 H 03/22/24 03/22/24 03/22/24 17:28 18:38 19:30 Glucose 179 H POC Glucose 193 H 182 H 03/22/24 03/22/24 03/22/24 21:32 23:09 23:20 Glucose 190 H POC Glucose 196 H 179 H 03/23/24 03/23/24 03/23/24 02:40 02:47 07:17 Glucose 163 H 188 H POC Glucose 154 H 03/23/24 03/23/24 03/23/24 10:58 11:12 11:56 Glucose 151 H POC Glucose 175 H 145 H 03/23/24 13:35 Glucose POC Glucose 144 H OUTPATIENT ANTIDIABETIC REGIMEN: * Newly diagnoses * A1c: 16.5% ASSESSMENT: * Patient presenting with hypertensive emergency and DKA. Nicardipine drip has been discontinued and patient transitioned to oral antihypertensives. * Given improvements in BSGS and metabolic markers, insulin infusion was transitioned off this morning. Will add a lantus scale this evening based on BSG. Initial basal/bolus regimen will be weight based using a moderate stress impact factor. * Patient is ordered a diet. PLAN FOR INPATIENT GLYCEMIC CONTROL: * Hold outpatient oral diabetes medications * Basal insulin * Lantus 30 units SQ total this morning * Lantus 0,8 or 15 units HS based on BSG- See MAR for details * Bolus insulin * NovoLog per scale ACHS or Q6hrs while NPO * Goal Range: Low 110 mg/dL - High 140 mg/dL * Correction Factor: 30 mg/dL/unit * Nutritional / Prandial insulin per carb ratio of 1 unit per 10 grams CHO consumed
[2024-03-23] MEDS: METOPROLOL TARTRATE 25 MG TAB PO SCH (15:24)
[2024-03-23 15:41] LABS: BUN Creatinine Ratio 15.6 (10-20); Calcium 9.3 mg/dl (8.6-10.3); Creatinine Clr Calc Pharmacy 102.7 ml/min; Est GFR (African American) 112.7 ml/min; Est GFR (Non-African American) 97.3 ml/min; Magnesium 1.9 mg/dl (1.7-2.4); Phosphorus 2.7 mg/dl (2.5-4.9); Potassium 3.8 mmol/L (3.5-5.1)
[2024-03-23] MEDS ORDERED: oxyCODONE HCL IR 5 MG TAB (IMMEDIATE RELEASE) PO PRN (16:37)
[2024-03-23] MEDS ORDERED: ACETAMINOPHEN 325 MG TAB PO PRN (16:37)
[2024-03-23] MEDS: oxyCODONE HCL IR 5 MG TAB (IMMEDIATE RELEASE) PO STA (17:05)
[2024-03-23] MEDS: amLODIPine BESYLATE 5 MG TAB PO ONE (17:05)
[2024-03-23] MEDS: LANTUS PER UNIT CHARGE SC SCH (20:11)
[2024-03-23] MEDS: ROSUVASTATIN CALCIUM 10 MG TAB PO SCH (20:13)
[2024-03-23] MEDS: oxyCODONE HCL IR 5 MG TAB (IMMEDIATE RELEASE) PO PRN (23:38)
--- NOTE | 2024-03-24 06:43 | Cardiology Progress Note ---
Date of Service March 24, 2024 Assessment & Plan (1) Hypertensive emergency: (2) Elevated troponin: (3) Diabetic ketoacidosis: Plan Impression: 63-year-old male admitted for hypertensive urgency and DKA. BP and glucose levels trending towards improved control. Plan: Hypertensive emergency: Markedly hypertensive with metabolic derailment Abnormal EKG changes with ST elevation noted inferior leads + High-sensitivity troponin elevated ~500.; likely due to strain/demand from marked hypertension. Echo with preserved LVEF, no new WMA, or significant valve disease. -Recommend aggressive management of blood pressure: -Discontinue metoprolol tartrate, start metoprolol succinate 100 mg BID. -Agree with the use of lisinopril for renal protection given underlying diabetes. Titrate as appropriate. -Agree starting amlodipine 5 mg daily this morning -Given degree of hypertension patient will likely require at minimum 3 blood pressure medications to obtain adequate control. -Continue ASA 81 mg daily -LDL above goal (under 70)-Crestor 10 mg daily started yesterday, 03/23. -Once BP and glucose is under control will consider stress testing- increase risk for coronary disease given uncontrolled DM and hypertension DKA: Admission glucose greater than 600. ED treated with IV fluids and insulin. A1c 16.5% Insulin drip discontinued 03/23/2024 -Will defer to primary service/ICU team regarding management. Currently on sliding scale + Lantus. Case discussed with Dr. Diop. Cardiology will follow. I spent a total of 30 minutes on the date of service in preparation, delivery, and documentation of the care provided to the patient excluding any time spent in the performance of separately billed services. DANIEL Mcdonald Department of Cardiology, [facility] This chart was completed in part utilizing Speech Voice Recognition Software. Grammatical errors, random word insertions, pronoun errors, and incomplete sentences are an occasional consequence of this system due to software l imitations, ambient noise, and hardware issues. Any formal questions or concerns about the content, text, or information contained within the body of this dictation should be directly addressed to the provider for clarification. Admission and Anticipated Discharge Date Admission Date: March 22, 2024 Supervising Physician Co-Signing Physician Notes Patient seen and personally examined. Care and plan as above discussed and personally endorsed Hypertension trending towards better control but will require 3 drugs as above discussed with patient i spent a total of 15 minutes on the date of service in preparation, delivery, and documentation of the care provided to the patient excluding any time spent in the performance of separately billed services. Subjective 63-year-old male with limited cardiac and medical care recently who presented with symptoms of right-sided chest pain and shortness of breath of 2 days duration. Acute ER evaluation demonstrated marked metabolic derangement with evidence of DKA and hypertensive urgency/emergency. Initial EKG with ST elevation inferior leads III and aVF. Echocardiogram demonstrates preserved wall motion and no significant valvular. 03/22/2024: Glucose greater than 600; transferred to ICU and started on insulin drip Markedly hypertensive--treated with two 5 mg doses of IV Lopressor and started on metoprolol tartrate 25 mg twice daily, Lisinopril 20 mg daily, and nicardipine drip. 03/23/2024: Glucose levels improving. Insulin drip discontinued. Blood pressures remain hypertensive with systolics averaging in the 150s to 170s. Metoprolol tartrate increased to 75 mg 3 times daily Nifedipine discontinued. Norvasc 5 mg daily added to be started on 03/2403/24/2024: Glucose levels improving, averaging between 120 and 170. Blood pressures averaging between 120 and 150 systolic. Telemetry: ST 90-110s Upon entrance into the room patient sitting up in the chair, just finished breakfast. Feeling much better since admission. Slept well last night. Right sided chest pain has resolved. No longer nauseated. No vomiting. Denies exertional chest pain, shortness of breath, palpitations, dizziness, syncope or near syncope. No orthopnea, PND, or increased lower extremity edema. No fever, chills, cough, hematochezia, melena, or hemoptysis Review of Systems Review of Systems: All systems reviewed & are unremarkable except as noted in HPI & below Physical Exam Constitutional: WD/WN, vitals as above no acute distress Eyes: PERRL, conjunctivae normal, anicteric sclerae Neck: normal visual inspection and trachea midline Respiratory: normal respiratory effort, lungs clear to auscultation Cardiovascular: RRR, no murmur, no edema Heart Sounds: normal S1 and normal S2; no murmur Vessels: no JVD Extremities: no edema Gastrointestinal (Abdomen): normal bowel sounds, soft, nontender, no hepatosplenomegaly Musculoskeletal: no cyanosis or clubbing, extremities motor strength 5/5 Skin: no rashes, warm and dry Neurologic: PERRL, EOMI, accommodation nl, no face palsy, no dysarthria Psychiatric: A+Ox3, euthymic affect Results & Data Vital Signs (Past 12 Hours) Vital Signs Temp Pulse Resp BP Pulse Ox 03/24/24 06:01 149/84 H 03/24/24 06:01 149/84 H 03/24/24 06:00 91 H 16 98 03/24/24 05:36 94 H 16 97 03/24/24 05:18 93 H 16 97 03/24/24 05:02 139/82 03/24/24 05:02 139/82 03/24/24 05:00 95 H 16 97 03/24/24 04:42 94 H 20 98 03/24/24 04:33 96 H 20 98 03/24/24 04:15 94 H 19 98 03/24/24 04:01 151/86 H 03/24/24 04:00 100 H 21 97 03/24/24 03:51 99 H 17 99 03/24/24 03:42 108 H 17 84 L 03/24/24 03:21 89 16 96 03/24/24 03:15 89 18 97 03/24/24 03:02 132/75 03/24/24 03:00 36.7 C 03/24/24 02:45 84 15 97 03/24/24 02:33 84 15 96 03/24/24 02:21 85 16 97 03/24/24 02:12 84 15 97 03/24/24 02:02 123/70 03/24/24 02:02 123/70 03/24/24 02:00 85 19 96 03/24/24 01:42 85 20 96 03/24/24 01:27 88 16 97 03/24/24 01:12 85 14 95 03/24/24 01:03 88 16 96 03/24/24 01:02 121/68 03/24/24 00:57 87 15 96 03/24/24 00:42 90 16 96 03/24/24 00:36 90 16 96 03/24/24 00:21 94 H 20 96 03/24/24 00:18 94 H 19 96 03/24/24 00:02 158/88 H 03/24/24 00:00 100 H 03/23/24 23:57 92 H 22 97 03/23/24 23:33 95 H 25 H 97 03/23/24 23:24 91 H 21 99 03/23/24 23:01 166/101 H 03/23/24 23:01 166/101 H 03/23/24 23:01 166/101 H 03/23/24 23:01 166/101 H 03/23/24 23:00 82 23 96 03/23/24 22:54 84 21 97 03/23/24 22:33 76 20 96 03/23/24 22:00 36.7 C 03/23/24 21:54 80 6 L 99 03/23/24 21:39 157/102 H 03/23/24 21:39 157/102 H 03/23/24 21:39 80 18 96 03/23/24 21:33 77 20 97 03/23/24 21:24 81 21 97 03/23/24 21:12 86 18 97 03/23/24 21:00 100 H 20 98 03/23/24 20:42 97 H 22 99 03/23/24 20:33 101 H 23 98 03/23/24 20:32 178/106 H 03/23/24 20:32 178/106 H 03/23/24 20:24 103 H 21 98 03/23/24 20:21 109 H 24 98 03/23/24 20:15 105 H 21 98 03/23/24 20:02 176/101 H 03/23/24 20:02 176/101 H 03/23/24 20:02 176/101 H 03/23/24 20:00 99 H 17 98 03/23/24 19:57 100 H 21 98 03/23/24 19:36 91 H 20 97 03/23/24 19:32 161/100 H 03/23/24 19:32 161/100 H 03/23/24 19:32 161/100 H 03/23/24 19:24 98 H 20 98 03/23/24 19:21 99 H 20 98 03/23/24 19:13 172/107 H 03/23/24 19:12 100 H 18 98 03/23/24 19:03 91 H 19 96 03/23/24 19:02 228/128 H 03/23/24 19:02 228/128 H 03/23/24 18:51 103 H 23 98 03/23/24 18:48 91 H 18 97 Laboratory Results CBC 03/24/24 Range/Units 06:24 WBC 8.28 (4.8-10.8) K/ul RBC 4.66 L (4.70-6.10) M/uL Hgb 14.6 (14.0-18.0) g/dl Hct 43.2 (42.0-52.0) % Plt Count 151 (130-400) K/uL Neut # (Auto) 6.20 (1.40-6.50) K/uL Lymph # (Auto) 1.09 L (1.20-3.40) K/uL [place] # (Auto) 0.95 H (0.11-0.59) K/uL Eos # (Auto) 0.00 (0.00-0.50) K/uL Baso # (Auto) 0.02 (0.00-0.20) K/uL Comprehensive Metabolic Panel 03/23/24 03/23/24 03/24/24 Range/Units 11:12 15:07 06:24 Sodium 135 L 134 L 137 (136-145) mmol/L Potassium 3.8 3.8 3.4 L (3.5-5.1) mmol/L Chloride 102 101 104 (98-107) mmol/L Carbon Dioxide 24 21 22 (21-32) mmol/L BUN 11 12 12 (6-23) mg/dl Creatinine 0.71 0.77 0.75 (0.6-1.4) mg/dl Glucose 151 H 169 H 161 H (70-99(Fasting)) mg/dl Calcium 9.0 9.3 8.5 L (8.6-10.3) mg/dl Intake and Output 03/23/24 03/24/24 03/24/24 22:59 06:59 14:59 Intake Total 0 728.803 Output Total / 2099 500 / 2100 Balance -700 / -1371.197 -500 / -1371.197 Intake: IV 0 728.803 D5w and 1/2Nss + 20Meq KCl 20 0 / 621.25 meq In 1,000 ml @ 175 mls/hr IV .Q5H43M [facility] Rx#:[id number] Insulin Regular 250 units In 0 / 27.969 Sodium Chloride 0.9% 247.5 ml @ 2 UNITS/HR 2 mls/hr IV .Q24H [facility] Rx#:[id number] niCARdipine 25 mg In Sodium 0 / 79.584 Chloride 0.9% 240 ml @ 0 MG/HR IV .Q0M [facility] Rx#:[id number] Output: Urine 700 / 2100 500 / 2100 Other: # Unmeasured Voids 0 Weight 81 kg Weight Measurement Method Standing Scale (3) Diabetic ketoacidosis Diabetes mellitus complication detail: without coma Diabetes mellitus type: type 2 Qualified Code(s): E11.10 - Type 2 diabetes mellitus with ketoacidosis without coma
[2024-03-24 06:48] LABS: Basophils # (auto) 0.02 K/uL (0.00-0.20); Basophils % (auto) 0.2 %; Hematocrit (blood only) 43.2 % (42.0-52.0); Hemoglobin 14.6 g/dl (14.0-18.0); Immature Granulocytes # (auto) 0.02 K/uL (0.01-0.20); Immature Granulocytes % (auto) 0.2 %; Lymphocytes # (auto) 1.09 K/uL (1.20-3.40); Lymphocytes % (auto) 13.2 %; Mean Corpuscular Hemoglobin 31.3 pg (25.0-34.0); Mean Corpuscular Hgb Conc 33.8 g/dL (32.0-36.0); Mean Corpuscular Volume 92.7 fL (80.0-100.0); Mean Platelet Volume 10.4 fL (9.4-12.4); Monocytes # (auto) 0.95 K/uL (0.11-0.59); Monocytes % (auto) 11.5 %; Neutrophils % (auto) 74.9 %; Platelet Count 151 K/uL (130-400); RDW Coefficient of Variation 13.2 % (11.5-14.5); RDW Standard Deviation 44.4 fL (36.4-46.3); Red Blood Count 4.66 M/uL (4.70-6.10); White Blood Count 8.28 K/ul (4.8-10.8)
[2024-03-24 06:58] LABS: Calcium 8.5 mg/dl (8.6-10.3); Creatinine Clr Calc Pharmacy 105.4 ml/min; Est GFR (African American) 113.9 ml/min; Est GFR (Non-African American) 98.3 ml/min; Magnesium 1.7 mg/dl (1.7-2.4); Phosphorus 2.4 mg/dl (2.5-4.9); Potassium 3.4 mmol/L (3.5-5.1)
[2024-03-24] MEDS: MAGNESIUM SULFATE / D5W 1 GM/100 ML BAG IV SCH (07:59)
[2024-03-24] MEDS: POTASSIUM CHLORIDE CRTAB 20 MEQ TABCR PO STA (08:00)
[2024-03-24] MEDS: amLODIPine BESYLATE 5 MG TAB PO SCH (08:02)
[2024-03-24] MEDS: LANTUS PER UNIT CHARGE SC SCH (08:02)
[2024-03-24] MEDS: ENOXAPARIN INJ 40 MG/0.4 ML SYR SQ SCH (08:02)
[2024-03-24] MEDS: METOPROLOL SUCC 50MG EXT REL TAB PO SCH (08:53)
--- NOTE | 2024-03-24 09:07 | Critical Care Progress Note ---
Date of Service March 24, 2024 Assessment & Plan (1) Hypertensive emergency: Plan: Reason Critically Ill: 63-year-old male without significant past medical history with hypertensive emergency PLAN: Resp: CV: Hypertensive emergency resolved -Lipid panel reviewed on statin therapy Elevated troponins, abnormal EKG -Reviewed cardiology consultation Fluids/Renal: High gap metabolic acidosis: DKA: Resolved ID: Elevated white count: Resolved GI/Nutrition: Retrocaval mass/lymph node enlargement -PSA within normal limits, CT reviewed, reviewed testicular ultrasound -Discussed briefly with radiology, surgery, vascular surgery: General consensus patient would benefit from outpatient referral to tertiary care interventional radiology for possible sampling Heme: Leukocytosis as noted above DVT prophylaxis: Lovenox Endocrine: DKA resolved: A1c 16.5 Subcutaneous insulin -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 Asymptomatic otherwise Physical Exam Physical Exam: General: Alert. nontoxic. Skin: Warm, dry, Head: Atraumatic Ears, nose, mouth and throat: airway patent Cardiovascular: Normal peripheral perfusion Respiratory: no respiratory distress Gastrointestinal: Non distended Musculoskeletal: No deformity Results & Data Results & Data Vital Signs (Past 12 Hours) Vital Signs Temp Pulse Resp BP Pulse Ox 03/24/24 07:03 94 H 19 97 03/24/24 07:02 161/91 H 03/24/24 06:57 93 H 22 97 03/24/24 06:51 100 H 21 96 03/24/24 06:21 91 H 17 97 03/24/24 06:03 93 H 16 97 03/24/24 06:01 149/84 H 03/24/24 06:01 149/84 H 03/24/24 06:00 91 H 16 98 03/24/24 05:36 94 H 16 97 03/24/24 05:18 93 H 16 97 03/24/24 05:02 139/82 03/24/24 05:02 139/82 03/24/24 05:00 95 H 16 97 03/24/24 04:42 94 H 20 98 03/24/24 04:33 96 H 20 98 03/24/24 04:15 94 H 19 98 03/24/24 04:01 151/86 H 03/24/24 04:00 100 H 21 97 03/24/24 03:51 99 H 17 99 03/24/24 03:42 108 H 17 84 L 03/24/24 03:21 89 16 96 03/24/24 03:15 89 18 97 03/24/24 03:02 132/75 03/24/24 03:00 36.7 C 03/24/24 02:45 84 15 97 03/24/24 02:33 84 15 96 03/24/24 02:21 85 16 97 03/24/24 02:12 84 15 97 03/24/24 02:02 123/70 03/24/24 02:02 123/70 03/24/24 02:00 85 19 96 03/24/24 01:42 85 20 96 03/24/24 01:27 88 16 97 03/24/24 01:12 85 14 95 03/24/24 01:03 88 16 96 03/24/24 01:02 121/68 03/24/24 00:57 87 15 96 03/24/24 00:42 90 16 96 03/24/24 00:36 90 16 96 03/24/24 00:21 94 H 20 96 03/24/24 00:18 94 H 19 96 03/24/24 00:02 158/88 H 03/24/24 00:00 100 H 03/23/24 23:57 92 H 22 97 03/23/24 23:33 95 H 25 H 97 03/23/24 23:24 91 H 21 99 03/23/24 23:01 166/101 H 03/23/24 23:01 166/101 H 03/23/24 23:01 166/101 H 03/23/24 23:01 166/101 H 03/23/24 23:00 82 23 96 03/23/24 22:54 84 21 97 03/23/24 22:33 76 20 96 03/23/24 22:00 36.7 C 03/23/24 21:54 80 6 L 99 03/23/24 21:39 157/102 H 03/23/24 21:39 157/102 H 03/23/24 21:39 80 18 96 03/23/24 21:33 77 20 97 03/23/24 21:24 81 21 97 03/23/24 21:12 86 18 97 Critical Care Results & Data Vital Signs (Past 12 Hours) Vital Signs Temp Pulse Resp BP Pulse Ox 03/24/24 07:03 94 H 19 97 03/24/24 07:02 161/91 H 03/24/24 06:57 93 H 22 97 03/24/24 06:51 100 H 21 96 03/24/24 06:21 91 H 17 97 03/24/24 06:03 93 H 16 97 03/24/24 06:01 149/84 H 03/24/24 06:01 149/84 H 03/24/24 06:00 91 H 16 98 03/24/24 05:36 94 H 16 97 03/24/24 05:18 93 H 16 97 03/24/24 05:02 139/82 03/24/24 05:02 139/82 03/24/24 05:00 95 H 16 97 03/24/24 04:42 94 H 20 98 03/24/24 04:33 96 H 20 98 03/24/24 04:15 94 H 19 98 03/24/24 04:01 151/86 H 03/24/24 04:00 100 H 21 97 03/24/24 03:51 99 H 17 99 03/24/24 03:42 108 H 17 84 L 03/24/24 03:21 89 16 96 03/24/24 03:15 89 18 97 03/24/24 03:02 132/75 03/24/24 03:00 36.7 C 03/24/24 02:45 84 15 97 03/24/24 02:33 84 15 96 03/24/24 02:21 85 16 97 03/24/24 02:12 84 15 97 03/24/24 02:02 123/70 03/24/24 02:02 123/70 03/24/24 02:00 85 19 96 03/24/24 01:42 85 20 96 03/24/24 01:27 88 16 97 03/24/24 01:12 85 14 95 03/24/24 01:03 88 16 96 03/24/24 01:02 121/68 03/24/24 00:57 87 15 96 03/24/24 00:42 90 16 96 03/24/24 00:36 90 16 96 03/24/24 00:21 94 H 20 96 03/24/24 00:18 94 H 19 96 03/24/24 00:02 158/88 H 03/24/24 00:00 100 H 03/23/24 23:57 92 H 22 97 03/23/24 23:33 95 H 25 H 97 03/23/24 23:24 91 H 21 99 03/23/24 23:01 166/101 H 03/23/24 23:01 166/101 H 03/23/24 23:01 166/101 H 03/23/24 23:01 166/101 H 03/23/24 23:00 82 23 96 03/23/24 22:54 84 21 97 03/23/24 22:33 76 20 96 03/23/24 22:00 36.7 C 03/23/24 21:54 80 6 L 99 03/23/24 21:39 157/102 H 03/23/24 21:39 157/102 H 03/23/24 21:39 80 18 96 03/23/24 21:33 77 20 97 03/23/24 21:24 81 21 97 03/23/24 21:12 86 18 97 Lab & Micro Results (Past 24 Hours) RBC 4.66 M/uL (4.70-6.10) L 03/24/24 WBC 8.28 K/ul (4.8-10.8) 03/24/24 Hgb 14.6 g/dl (14.0-18.0) 03/24/24 Hct 43.2 % (42.0-52.0) 03/24/24 MCV 92.7 fL (80.0-100.0) 03/24/24 MCH 31.3 pg (25.0-34.0) 03/24/24 MCHC 33.8 g/dL (32.0-36.0) 03/24/24 RDW Standard Deviation 44.4 fL (36.4-46.3) 03/24/24 RDW Coefficient of Variation 13.2 % (11.5-14.5) 03/24/24 Plt Count 151 K/uL (130-400) 03/24/24 MPV 10.4 fL (9.4-12.4) 03/24/24 Neutrophils (%) (Auto) 74.9 % 03/24/24 Lymphocytes (%) (Auto) 13.2 % 03/24/24 Monocytes # (Auto) 0.95 K/uL (0.11-0.59) H 03/24/24 Eosinophils # (Auto) 0.00 K/uL (0.00-0.50) 03/24/24 Immature Granulocyte % (Auto) 0.2 % 03/24/24 Neutrophils # (Auto) 6.20 K/uL (1.40-6.50) 03/24/24 Lymphocytes # (Auto) 1.09 K/uL (1.20-3.40) L 03/24/24 Monocytes # (Auto) 0.95 K/uL (0.11-0.59) H 03/24/24 Eosinophils # (Auto) 0.00 K/uL (0.00-0.50) 03/24/24 Basophils # (Auto) 0.02 K/uL (0.00-0.20) 03/24/24 Immature Granulocyte # (Auto) 0.02 K/uL (0.01-0.20) 4 Na 137 mmol/L (136-145) 03/24/24 K 3.4 mmol/L (3.5-5.1) L 03/24/24 Cl 104 mmol/L (98-107) 03/24/24 CO2 22 mmol/L (21-32) 03/24/24 Anion Gap 11 (3-11) 03/24/24 BUN 12 mg/dl (6-23) 03/24/24 Creatinine 0.75 mg/dl (0.6-1.4) 03/24/24 Estimated GFR ( Amer) 113.9 ml/min 03/24/24 Estimated GFR (Non-Af Amer) 98.3 ml/min 03/24/24 BUN/Creatinine Ratio 16.0 (10-20) 03/24/24 Glu 161 mg/dl (70-99(Fasting)) H 03/24/24 Ca 8.5 mg/dl (8.6-10.3) L 03/24/24 Phosphorus Level 2.4 mg/dl (2.5-4.9) L 03/24/24 Mg 1.7 mg/dl (1.7-2.4) 03/24/24 06:24 Calcium Level 8.5 mg/dl (8.6-10.3) L 03/24/24 06:24 Venous Blood pH 7.32 (7.36-7.41) L 03/23/24 14:55 Diagnostic Findings (Past 24 Hours) Scrotum Ultrasound 03/23/24 09:31 US scrotum/testicle CLINICAL HISTORY: 63 years-old Male with retrocaval lymph node. Pathologic retroperitoneal lymphadenopathy COMPARISON STUDY: CT of same day TECHNIQUE: Real-time, grayscale, and color Doppler sonography of the testes and scrotum is performed. Images are reviewed in the transverse and longitudinal planes. FINDINGS: RIGHT HEMISCROTUM: The right testis measures 4.2 x 2.1 x 3.0 cm and the parenchyma appears unremarkable. No intratesticular mass is seen. Normal- appearing arterial inflow is present within the right testicle. The right epididymal head appears normal. No varicocele. Small mildly complex hydrocele. LEFT HEMISCROTUM: The left testis measures 4.2 x 2.1 x 3.0 cm and the parenchyma appears unremarkable. No intratesticular mass is seen. Normal-appearing arterial inflow is present within the left testicle. The left epididymal head appears normal. No varicocele. Small mildly complex hydrocele. Indeterminate extratesticular echogenic structure measures 4 x 5 x 4 mm on image 39, possibly testicular appendage. This is likely benign. IMPRESSION: 1. No testicular torsion or mass. 2. Small mildly complex hydroceles. ACT 112: Negative or not required by law. The above report was generated using voice recognition software. It may contain grammatical, syntax or spelling errors. Electronically signed by: Kenny Zuleta M.D. 03/23/2024 11:59 AM I & O Totals 24 Hours 03/23/24 03/24/24 03/25/24 06:59 06:59 06:59 Intake Total 6405.800 / 6405.800 728.803 / 728.803 Output Total 1850 / 1850 2100 / 2100 Balance 4555.800 / 4555.800 -1371.197 / -1371.197 Cumulative 03/22/24 09:10 thru 03/24/24 06:26 Intake Total 7134.603 Output Total 3950 Balance 3184.603 RT Ventilator Mngmt (Last Documented) Ventilator Ordered Settings Respiratory Rate 19 03/24/24 07:03 Ventilator - PT Measurements Respiratory Rate 19 Coding Level of Care Code 86055 SUB INP/OBS CARE 2/35MIN Diagnoses Hypertensive emergency I16.1 Diabetic ketoacidosis without coma associated with type 2 diabetes mellitus E11.10 Diabetes mellitus complication detail: without coma Diabetes mellitus type: type 2 Weight loss of more than 10% body weight R63.4 Chest pain R07.9 Elevated troponin R79.89 Abnormal EKG R94.31 Lymph node enlargement R59.9 (2) Diabetic ketoacidosis Diabetes mellitus complication detail: without coma Diabetes mellitus type: type 2 Qualified Code(s): E11.10 - Type 2 diabetes mellitus with ketoacidosis without coma
[2024-03-24] MEDS: POT PHOSPHATE MONOBASIC W/ SOD TAB PO SCH (10:43)
[2024-03-24] MEDS ORDERED: POLYETHYLENE (MIRALAX) 17 GM PACK PO PRN (10:50)
[2024-03-24] MEDS: DOCUSATE SODIUM/SENNA 50/8.6MG TAB PO SCH (11:56)
--- NOTE | 2024-03-24 12:50 | Electrocardiogram Report ---
Test Reason : Blood Pressure : / mmHG Vent. Rate : 101 BPM Atrial Rate : 101 BPM P-R Int : 154 ms QRS Dur : 088 ms QT Int : 344 ms P-R-T Axes : 021 012 -48 degrees QTc Int : 446 ms Sinus tachycardia possible Inferior infarct (cited on or before 22-MAR-2024) Abnormal ECG When compared with ECG of 23-MAR-2024 11:28, QT has lengthened Confirmed by Wesley Fox ([id number]) on 03/24/2024 12:50:12 PM Referred By: Michi Barrett Confirmed By:Bennett Fox
--- NOTE | 2024-03-24 14:36 | Pharmacy Report ---
Pharmacy Glycemic Short Note 2 - Date of Service March 24, 2024 - Glycemic Short BSG Results (Last 24 hours): 03/23/24 03/23/24 03/23/24 15:07 16:21 19:29 Glucose 169 H POC Glucose 204 H 280 H 03/23/24 03/24/24 03/24/24 23:32 03:44 06:24 Glucose 161 H POC Glucose 161 H 128 H 03/24/24 03/24/24 07:10 10:55 Glucose POC Glucose 146 H 239 H OUTPATIENT ANTIDIABETIC REGIMEN: * Newly diagnoses * A1c: 16.5% ASSESSMENT: * Patient presenting with hypertensive emergency and DKA. Nicardipine drip has been discontinued and patient transitioned to oral antihypertensives. * Given improvements in BSGS and metabolic markers, insulin infusion was transitioned off this morning. Will add a lantus scale this evening based on BSG. Initial basal/bolus regimen will be weight based using a moderate stress impact factor. * Patient is ordered a diet. 03/24: * Since insulin drip transition yesterday afternoon, BSGs [phone] (fasting)-239 mg/dL. Patient received 45 units basal and 21 units bolus on top of the insulin infusion yesterday. * Will initiate a moderate stress weight based basal regimen today and tighten novolog scale. True insulin needs remain unknown. * Patient is tolerating a diet. PLAN FOR INPATIENT GLYCEMIC CONTROL: * Hold outpatient oral diabetes medications * Basal insulin * Lantus 15 units SQ BID * Bolus insulin * NovoLog per scale ACHS or Q6hrs while NPO * Goal Range: Low 110 mg/dL - High 140 mg/dL * Correction Factor: 20 mg/dL/unit * Nutritional / Prandial insulin per carb ratio of 1 unit per 6 grams CHO consumed
--- NOTE | 2024-03-24 14:45 | Hospitalist Progress Note ---
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 Patient reports feeling weak and tired all along since last month. 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 He reported feeling tired and always thirsty since last Month. 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 TSH WNL, A1c 16.5. Status post DKA protocol, now back on diet and subcutaneous insulin. Patient denies nausea, vomiting, abdominal pain. 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 Pt agreeable for insulin and metformin, and advised to f/u w/ endocrine on dc. He was agreeable. On DC: 15 units lantus daily, low dose SSI, metformin ER 500 mg PM w/ meal to be titrated by PCP or endocrine on dc in a week time. Hypertensive urgency: Admitting BP 217/136, s/p IV antihypertensive drip. BP meds are being optimized - currently on lisinopril, amlodipine, metoprolol. Blood pressure getting better. Chest pain, rule out ACS: Patient reported right-sided lower rib cage pain and attributes likely to back posturing during sleeping. Troponin elevated but flat trended between 500-600. admitting EKG with ST elevation in inferior leads. Echo with preserved ejection fraction, no new wall motion abnormality. likely demand ischemia secondary to acute hypertension. Cardiology evaluating, plan for stress test. Continue with aspirin and Lipitor. Dyslipidemia: LDL elevated at 135, given diabetes patient started on Crestor. Continue. Encourage lifestyle modification, follow-up with PCP for long-term monitoring. Retrocaval mass/lymph node enlargement: 3.8 x 3.0 x 3.5 cm mass posterior to the IVC concerning for an enlarged retrocaval lymph node. PSA WNL. scrotal ultrasound with no acute finding. Patient and his brother are aware to follow- up with interventional radiology upon discharge for biopsy. DVT prophylaxis: Lovenox subcu Full Code Disposition: med/tele. Admission and Anticipated Discharge Date Admission Date: March 22, 2024 Subjective Patient was seen and examined at bedside. Patient was sitting up in bed, on room air, NAD, resting comfortably. Pt reports sleeping very well last night. Patient reports no nausea and vomiting, reports tolerating diet, denies abdominal pain. Lifestyle modification, need for regular exercise regimen and need for follow-up with PCP discussed in detail with the patient and his brother at bedside. Physical Exam Physical Exam: General- oriented x 3, not in distress, speaks in sentences with no effort or accessory muscle use Head- atraumatic Eyes- PERRL, EOMI, anicteric ENT- oropharynx clear Neck- supple, no JVD, no adenopathy, no thyromegaly; carotids +2/2, no bruits appreciated Lungs- clear to auscultation bilaterally, no rales/wheezes Heart- normal rate, regular rhythm; no murmur, no gallop, no rub appreciated Abdomen- normal bowel sounds, nondistended, soft, nontender, no masses or hepatosplenomegaly Extremities- no pretibial edema, no calf tenderness; peripheral pulses intact Neuro- alert, oriented x 3; CN 2-12 grossly intact; motor 5/5 bilaterally;sensation 100% on all extremities; no other gross focal neurologic deficits Skin- warm & dry Results & Data Results & Data Vital Signs (Past 12 Hours) Vital Signs Temp Pulse Resp BP Pulse Ox O2 Del Method 03/24/24 12:19 96 Room Air 03/24/24 12:09 97 H 20 03/24/24 12:02 113/78 03/24/24 11:33 104 H 20 03/24/24 11:30 96 H 25 H 03/24/24 11:03 86 16 03/24/24 11:02 147/81 H 03/24/24 11:02 147/81 H 03/24/24 10:57 86 20 03/24/24 10:30 88 18 03/24/24 10:24 87 17 03/24/24 10:00 83 19 03/24/24 09:42 92 H 20 03/24/24 09:21 96 H 21 03/24/24 09:12 105 H 21 03/24/24 09:09 106 H 38 H 03/24/24 08:42 111 H 27 H 03/24/24 08:36 112 H 18 03/24/24 08:21 110 H 22 03/24/24 08:12 113 H 17 03/24/24 08:09 110 H 20 03/24/24 08:00 37.1 C 03/24/24 08:00 97 H 03/24/24 07:54 114 H 20 03/24/24 07:48 107 H 23 03/24/24 07:33 109 H 17 03/24/24 07:21 100 H 16 98 03/24/24 07:03 94 H 19 97 03/24/24 07:02 161/91 H 03/24/24 06:57 93 H 22 97 03/24/24 06:51 100 H 21 96 03/24/24 06:21 91 H 17 97 03/24/24 06:03 93 H 16 97 03/24/24 06:01 149/84 H 03/24/24 06:01 149/84 H 03/24/24 06:00 91 H 16 98 03/24/24 05:36 94 H 16 97 03/24/24 05:18 93 H 16 97 03/24/24 05:02 139/82 03/24/24 05:02 139/82 03/24/24 05:00 95 H 16 97 03/24/24 04:42 94 H 20 98 03/24/24 04:33 96 H 20 98 03/24/24 04:15 94 H 19 98 03/24/24 04:01 151/86 H 03/24/24 04:00 100 H 21 97 03/24/24 03:51 99 H 17 99 03/24/24 03:42 108 H 17 84 L 03/24/24 03:21 89 16 96 03/24/24 03:15 89 18 97 03/24/24 03:02 132/75 03/24/24 03:00 36.7 C 03/24/24 02:45 84 15 97
[2024-03-24] MEDS: metFORMIN HCL ER 500 MG TABCR PO SCH (20:48)
[2024-03-25] MEDS: INSULIN ASPART PER UNIT CHARGE SC SCH (00:14)
[2024-03-25 06:31] LABS: Basophils # (auto) 0.04 K/uL (0.00-0.20); Basophils % (auto) 0.6 %; Eosinophils # (auto) 0.02 K/uL (0.00-0.50); Eosinophils % (auto) 0.3 %; Hematocrit (blood only) 39.1 % (42.0-52.0); Hemoglobin 13.2 g/dl (14.0-18.0); Immature Granulocytes # (auto) 0.02 K/uL (0.01-0.20); Immature Granulocytes % (auto) 0.3 %; Lymphocytes # (auto) 1.53 K/uL (1.20-3.40); Lymphocytes % (auto) 23.3 %; Mean Corpuscular Hemoglobin 30.9 pg (25.0-34.0); Mean Corpuscular Hgb Conc 33.8 g/dL (32.0-36.0); Mean Corpuscular Volume 91.6 fL (80.0-100.0); Mean Platelet Volume 10.5 fL (9.4-12.4); Monocytes # (auto) 0.87 K/uL (0.11-0.59); Monocytes % (auto) 13.3 %; Neutrophils # (auto) 4.08 K/uL (1.40-6.50); Neutrophils % (auto) 62.2 %; Platelet Count 159 K/uL (130-400); RDW Standard Deviation 43.7 fL (36.4-46.3); Red Blood Count 4.27 M/uL (4.70-6.10); White Blood Count 6.56 K/ul (4.8-10.8)
[2024-03-25 07:32] LABS: BUN Creatinine Ratio 21.1 (10-20); Calcium 8.4 mg/dl (8.6-10.3); Creatinine Clr Calc Pharmacy 111.4 ml/min; Est GFR (African American) 116.5 ml/min; Est GFR (Non-African American) 100.6 ml/min; Magnesium 1.9 mg/dl (1.7-2.4); Phosphorus 3.4 mg/dl (2.5-4.9); Potassium 3.2 mmol/L (3.5-5.1)
[2024-03-25] MEDS: POTASSIUM CHLORIDE CRTAB 20 MEQ TABCR PO STA (08:23)
--- NOTE | 2024-03-25 14:57 | Pharmacy Report ---
Pharmacy Glycemic Short Note 2 - Date of Service March 25, 2024 - Glycemic Short BSG Results (Last 24 hours): 03/24/24 03/24/24 03/24/24 16:10 18:28 20:00 Glucose POC Glucose 241 H 239 H 189 H 03/25/24 03/25/24 03/25/24 00:11 04:18 06:05 Glucose 105 H POC Glucose 99 70 03/25/24 03/25/24 08:20 12:28 Glucose POC Glucose 111 H 147 H OUTPATIENT ANTIDIABETIC REGIMEN: * Newly diagnoses * A1c: 16.5% ASSESSMENT: 03/25: * Patient received total of 52 units of insulin yesterday, of which 30 units were basal insulin. * Fasting BSG much improved 70 mg/dL - therefore will scale back with basal, estimated patient needs 20-25 units * Loosen CF/CR today as BSGs much improved 03/24: * Since insulin drip transition yesterday afternoon, BSGs [phone] (fasting)-239 mg/dL. Patient received 45 units basal and 21 units bolus on top of the insulin infusion yesterday. * Will initiate a moderate stress weight based basal regimen today and tighten novolog scale. True insulin needs remain unknown. * Patient is tolerating a diet. PLAN FOR INPATIENT GLYCEMIC CONTROL: * Hold outpatient oral diabetes medications * Basal insulin * Lantus 20 units daily * Bolus insulin * NovoLog per scale ACHS or Q6hrs while NPO * Goal Range: Low 110 mg/dL - High 140 mg/dL * Correction Factor: 25 mg/dL/unit * Nutritional / Prandial insulin per carb ratio of 1 unit per 8 grams CHO consumed
--- NOTE | 2024-03-25 15:15 | Hospitalist Progress Note ---
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 Patient reports feeling weak and tired all along since last month. 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 He reported feeling tired and always thirsty since last Month. 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 TSH WNL, A1c 16.5. Status post DKA protocol, now back on diet and subcutaneous insulin. Patient denies nausea, vomiting, abdominal pain. clinical staff educator consult, glycemic pharmacy managing. Pt agreeable for insulin and metformin, and advised to f/u w/ endocrine on dc. He was agreeable. On DC: 15 units lantus daily, low dose SSI, metformin ER 500 mg PM w/ meal to be titrated by PCP or endocrine on dc in a week time. Hypertensive urgency: Admitting BP 217/136, s/p IV antihypertensive drip. BP meds are being optimized - currently on lisinopril, amlodipine, metoprolol. Blood pressure getting better. Chest pain, rule out ACS: Patient reported right-sided lower rib cage pain and attributes likely to back posturing during sleeping. Troponin elevated but flat trended between 500-600. admitting EKG with ST elevation in inferior leads. Echo with preserved ejection fraction, no new wall motion abnormality. likely demand ischemia secondary to acute hypertension. Cardiology evaluating, plan for stress test. Continue with aspirin and crestor. Dyslipidemia: LDL elevated at 135, given diabetes patient started on Crestor. Continue. Encourage lifestyle modification, follow-up with PCP for long-term monitoring. Retrocaval mass/lymph node enlargement: 3.8 x 3.0 x 3.5 cm mass posterior to the IVC concerning for an enlarged retrocaval lymph node. PSA WNL. scrotal ultrasound with no acute finding. Patient and his brother are aware to follow- up with interventional radiology upon discharge for biopsy. DVT prophylaxis: Lovenox subcu Full Code Disposition: med/tele. Admission and Anticipated Discharge Date Admission Date: March 22, 2024 Subjective Patient was seen and examined at bedside. Patient was sitting up in bed, on room air, NAD, resting comfortably. Patient reports no nausea and vomiting, reports eating ok, denies abdominal pain. Physical Exam Physical Exam: General- oriented x 3, not in distress, speaks in sentences with no effort or accessory muscle use Head- atraumatic Eyes- PERRL, EOMI, anicteric ENT- oropharynx clear Neck- supple, no JVD, no adenopathy, no thyromegaly; carotids +2/2, no bruits appreciated Lungs- clear to auscultation bilaterally, no rales/wheezes Heart- normal rate, regular rhythm; no murmur, no gallop, no rub appreciated Abdomen- normal bowel sounds, nondistended, soft, nontender, no masses or hepatosplenomegaly Extremities- no pretibial edema, no calf tenderness; peripheral pulses intact Neuro- alert, oriented x 3; CN 2-12 grossly intact; motor 5/5 b ilaterally;sensation 100% on all extremities; no other gross focal neurologic deficits Skin- warm & dry Results & Data Results & Data Vital Signs (Past 12 Hours) Vital Signs Temp Pulse Pulse Pulse Resp BP Pulse Ox 03/25/24 11:51 36.6 C 83 18 149/89 H 97 03/25/24 10:46 88 03/25/24 07:45 36.7 C 89 18 134/77 98 03/25/24 03:17 36.8 C 88 18 144/79 H 98 O2 Del Method 03/25/24 11:51 Room Air 03/25/24 10:46 03/25/24 07:45 Room Air 03/25/24 03:17 Room Air
[2024-03-25] MEDS: LANTUS PER UNIT CHARGE SC SCH (20:53)
[2024-03-26 07:16] LABS: Basophils # (auto) 0.04 K/uL (0.00-0.20); Basophils % (auto) 0.8 %; Eosinophils # (auto) 0.03 K/uL (0.00-0.50); Eosinophils % (auto) 0.6 %; Hematocrit (blood only) 40.1 % (42.0-52.0); Hemoglobin 13.2 g/dl (14.0-18.0); Immature Granulocytes # (auto) 0.01 K/uL (0.01-0.20); Immature Granulocytes % (auto) 0.2 %; Lymphocytes # (auto) 1.48 K/uL (1.20-3.40); Lymphocytes % (auto) 28.1 %; Mean Corpuscular Hemoglobin 30.8 pg (25.0-34.0); Mean Corpuscular Hgb Conc 32.9 g/dL (32.0-36.0); Mean Corpuscular Volume 93.5 fL (80.0-100.0); Mean Platelet Volume 10.3 fL (9.4-12.4); Monocytes # (auto) 0.73 K/uL (0.11-0.59); Monocytes % (auto) 13.9 %; Neutrophils # (auto) 2.98 K/uL (1.40-6.50); Neutrophils % (auto) 56.4 %; Platelet Count 175 K/uL (130-400); RDW Coefficient of Variation 12.9 % (11.5-14.5); RDW Standard Deviation 44.5 fL (36.4-46.3); Red Blood Count 4.29 M/uL (4.70-6.10); White Blood Count 5.27 K/ul (4.8-10.8)
[2024-03-26 07:40] LABS: BUN Creatinine Ratio 19.5 (10-20); Calcium 8.3 mg/dl (8.6-10.3); Creatinine Clr Calc Pharmacy 102.7 ml/min; Est GFR (African American) 112.7 ml/min; Est GFR (Non-African American) 97.3 ml/min; Magnesium 1.7 mg/dl (1.7-2.4); Potassium 3.5 mmol/L (3.5-5.1)
[2024-03-26] MEDS: POTASSIUM CHLORIDE CRTAB 20 MEQ TABCR PO STA (08:37)
--- NOTE | 2024-03-26 11:57 | Discharge Summary ---
Date of Service March 26, 2024 Admission HPI Per Admitting Provider 63 year old male with no known past medical history presenting with chest pain x 2 days, not feeling well for the past month. Patient states he has no known medical history and is currently not following with a PCP. He just moved to the area recently as well. He reports not feeling well for the past month- tired, always thirsty. For the past 2 days, he has been having right sided pain- pressure/sharp, severe, non radiating, associated with mild shortness of breath. No cough, fever/chills, abdominal pain. He had 1 episode of vomiting, non bloody earlier today. On admission, BP was 217/136, HR 100. Trop 552, EKG ST elevation in lead II-III? BSG 611, HCO3 14, AG 24, pH 7.15 Patient was given IV Morphine, case discussed with Cardiology, echo ordered Insulin drip ordered CT chest, abdomen/pelvis also ordered: results pending On exam, patient seen resting in bed, pleasant states R sided chest pain is better- 2/10, no dizziness, headache, nausea, shortness of breath, abdominal pain no other new symptoms Admission Exam Per Admitting Provider General- oriented x 3, not in distress, speaks in sentences with no effort or accessory muscle use Head- atraumatic Eyes- PERRL, EOMI, anicteric ENT- oropharynx clear Neck- supple, no JVD, no adenopathy, no thyromegaly; carotids +2/2, no bruits appreciated Lungs- clear to auscultation bilaterally, no rales/wheezes Heart- normal rate, regular rhythm; no murmur, no gallop, no rub appreciated Abdomen- normal bowel sounds, nondistended, soft, nontender, no masses or hepatosplenomegaly Extremities- no pretibial edema, no calf tenderness; peripheral pulses intact Neuro- alert, oriented x 3; CN 2-12 grossly intact; motor 5/5 bilaterally;sensation 100% on all extremities; no other gross focal neurologic deficits Skin- warm & dry Principal Diagnosis Diabetic ketoacidosis Newly diagnosed hypertension Hypertensive urgency Chest pain rule out ACS Dyslipidemia Retrocaval mass/lymph node enlargement Discharge Exam General- oriented x 3, not in distress, speaks in sentences with no effort or accessory muscle use Head- atraumatic Eyes- PERRL, EOMI, anicteric ENT- oropharynx clear Neck- supple, no JVD, no adenopathy, no thyromegaly; carotids +2/2, no bruits appreciated Lungs- clear to auscultation bilaterally, no rales/wheezes Heart- normal rate, regular rhythm; no murmur, no gallop, no rub appreciated Abdomen- normal bowel sounds, nondistended, soft, nontender, no masses or hepatosplenomegaly Extremities- no pretibial edema, no calf tenderness; peripheral pulses intact Neuro- alert, oriented x 3; CN 2-12 grossly intact; motor 5/5 bilaterally;sensation 100% on all extremities; no other gross focal neurologic deficits Skin- warm & dry Discharge Data Allergies Allergy/AdvReac Type Severity Reaction Status Date / Time No Known Allergies Allergy Unverified 03/22/24 11:15 Consultations 03/22/24 10:51 ED Decision to Admit Stat 03/22/24 13:37 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 Patient reports feeling weak and tired all along since last month. 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 He reported feeling tired and always thirsty since last Month. 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 TSH WNL, A1c 16.5. Status post DKA protocol, now back on diet and subcutaneous insulin. Patient denies nausea, vomiting, abdominal pain. extension educator consult, glycemic pharmacy managing. Pt agreeable for insulin and metformin, and advised to f/u w/ endocrine on dc. He was agreeable. On DC: 15 units lantus daily, low dose SSI, metformin ER 500 mg PM w/ meal to be titrated by PCP or endocrine on dc in a week time. Hypertensive urgency: Admitting BP 217/136, s/p IV antihypertensive drip. BP meds are being optimized - currently on lisinopril, amlodipine, metoprolol. Blood pressure getting better. Chest pain, rule out ACS: Patient reported right-sided lower rib cage pain and attributes likely to back posturing during sleeping. Troponin elevated but flat trended between 500-600. admitting EKG with ST elevation in inferior leads. Echo with preserved ejection fraction, no new wall motion abnormality. likely demand ischemia secondary to acute hypertension. Cardiology cher, d/w cardio 03/26, plan for stress test as OP. Continue with aspirin and Crestor. Dyslipidemia: LDL elevated at 135, given diabetes patient started on Crestor. Continue. Encourage lifestyle modification, follow-up with PCP for long-term monitoring. Retrocaval mass/lymph node enlargement: 3.8 x 3.0 x 3.5 cm mass posterior to the IVC concerning for an enlarged retrocaval lymph node. PSA WNL. scrotal ultrasound with no acute finding. Patient and his brother are aware to follow- up with interventional radiology upon discharge for biopsy. DVT prophylaxis: Lovenox subcu Full Code Disposition: med/tele. Patient is being discharged home with following instruction at the point of discharge: Follow-up with your primary care physician within a week time and likely you will need labs CBC/CMP/magnesium/phosphorus. You were diagnosed with diabetes, your A1c was 16.5, you will be discharged on 15 units of Lantus daily and low-dose sliding scale protocol [see below] and on metformin daily. Utilize fingerstick glucose monitoring as educated at bedside to utilize sliding scale protocol as given below. Also your metformin dose needs to be uptitrated as you continue to tolerate the medication. Follow-up with your PCP for long-term monitoring and management. Establish with endocrinology upon discharge in 2 to 4 weeks time. You also had very high blood pressure at presentation, various blood pressure medication has been added to control your blood pressure. You might need outpatient stress test, follow-up with your cardiology in 2 to 4 weeks time upon discharge for further evaluation and management. He also had dyslipidemia, you have been started on Crestor. You will need repeat liver function test and lipid profile in 2 to 3 months time. As discussed at the bedside, you also had retrocaval mass/lymph node enlargement, you will need interventional radiology biopsy the lymph node. Coordinate with your PCP office to set up the referral. Take your medications as prescribed. Low dose SSI Blood Sugar 70-150--->administer ---> 0 units Blood Sugar 151-200--->administer ---> 1 units Blood Sugar 201-250--->administer ---> 3 units Blood Sugar 251-300--->administer ---> 5 units Blood Sugar 301-350--->administer ---> 7 units Blood Sugar 351-400---> administer ---> 9 units Blood Sugar 400--->administer ----> 11 units and call MD Please make sure that you are able to get your medications today by calling your pharmacy before you leave the hospital so that your treatment continuity is not broken. Home Health Attestation I certify that this patient is under my care and that I, or a physicians product safety technical assistant working with me, had a face to-face encounter that meets the home health [id number] encounter requirements with this patient. The encounter with the patient was in whole, or in part, for the following medical condition, which is the primary reason for home health care (list medical condition): I certify that, based on my findings, the following services are medically necessary home health services: My clinical findings support the need for the above services because: Further, I certify that my clinical findings support that this patient is homebound (i.e. absences from home require considerable and taxing effort and are for medical reasons or bahai services or infrequently or of short duration when for other reasons) because: Certification for Home Health Services: Based on the above findings, I certify that this patient is confined to the home and needs intermittent nursing home care, physical therapy and/or speech therapy or continues to need occupational therapy. The patient is under my care, and I have initiated the establishment of the plan of care. This patient will be followed by a physician who will periodically review the plan of care. Total Time Total Time Spent Total Time Spent (In Minutes): 45 Discharge Plan Discharge Items Patient Disposition: Home - Self-Care Reason For Visit: CHEST PAIN, DKE Discharge Diagnosis: Diabetic ketoacidosis Newly diagnosed hypertension Hypertensive urgency Chest pain rule out ACS Dyslipidemia Retrocaval mass/lymph node enlargement Activity: Resume your previous activity Non-emergency contact: Primary Care Provider Call non-emergency contact if: you have any medication questions Follow-up/Referrals: Matheus Turner DO [Physician] - 03/27/24 11:30 am ([address]) Diet: Carb Consistent or DM2 Addtl Attending Provider Instructions: Follow-up with your primary care physician within a week time and likely you will need labs CBC/CMP/magnesium/phosphorus. You were diagnosed with diabetes, your A1c was 16.5, you will be discharged on 15 units of Lantus daily and low-dose sliding scale protocol [see below] and on metformin daily. Utilize fingerstick glucose monitoring as educated at bedside to utilize sliding scale protocol as given below. Also your metformin dose needs to be uptitrated as you continue to tolerate the medication. Follow-up with your PCP for long-term monitoring and management. Establish with endocrinology upon discharge in 2 to 4 weeks time. You also had very high blood pressure at presentation, various blood pressure medication has been added to control your blood pressure. You might need outpatient stress test, follow-up with your cardiology in 2 to 4 weeks time upon discharge for further evaluation and management. He also had dyslipidemia, you have been started on Crestor. You will need repeat liver function test and lipid profile in 2 to 3 months time. As discussed at the bedside, you also had retrocaval mass/lymph node enlargement, you will need interventional radiology biopsy the lymph node. Coordinate with your PCP office to set up the referral. Take your medications as prescribed. Low dose SSI Blood Sugar 70-150--->administer ---> 0 units Blood Sugar 151-200--->administer ---> 1 units Blood Sugar 201-250--->administer ---> 3 units Blood Sugar 251-300--->administer ---> 5 units Blood Sugar 301-350--->administer ---> 7 units Blood Sugar 351-400---> administer ---> 9 units Blood Sugar 400--->administer ----> 11 units and call MD Please make sure that you are able to get your medications today by calling your pharmacy before you leave the hospital so that your treatment continuity is not broken. Pending Studies at Discharge: No Stand-Alone Forms: My [facility], Smoking Cessation Medications and DC Order Prescriptions: New insulin glargine [Lantus Solostar U-100 Insulin] 100 unit/mL (3 mL) insulin pen 15 unit subcut DAILY 30 Days Qty: 15 0RF insulin aspart U-100 [Novolog FlexPen U-100 Insulin] 100 unit/mL (3 mL) insulin pen 1 sliding scale dose subcut USEASDIRECTD Qty: 15 0RF Rx Instructions: per low dose sliding scale provided to you in instruction section at the time of discharge (DME) OneTouch Verio test strips Strip See Rx Instructions .Route Qty: 100 0RF Rx Instructions: 4x/day - before meals and at bedtime (DME) lancets 30 gauge misc See Rx Instructions .Route Qty: 100 0RF Rx Instructions: 4x/day - before meals and at bedtime (DME) pen needle, diabetic [Pen Needle] 32 gauge x 5/32" needle See Rx Instructions .Route Qty: 100 0RF Rx Instructions: 4 to 5 times a day. amlodipine [Norvasc] 5 mg Tablet 5 mg PO QAM Qty: 30 0RF lisinopril 20 mg Tablet 20 mg PO QAM Qty: 30 0RF metoprolol succinate [Toprol XL] 100 mg tablet extended release 24 hr 100 mg PO BID Qty: 60 0RF rosuvastatin 10 mg Tablet 10 mg PO HS Qty: 30 0RF aspirin 81 mg Tablet,Delayed Release (Dr/Ec) 81 mg PO QAM Qty: 30 0RF diclofenac sodium [Voltaren Arthritis Pain] 1 % Gel 2 g EXT Q8 PRN (Reason: back pain) Qty: 100 0RF metformin 500 mg Tablet Extended Release 24 Hr 500 mg PO PM Qty: 30 0RF Continued multivitamin Tablet 1 tab PO DAILY calcium carbonate 500 mg calcium (1,250 mg) Tablet 500 mg PO DAILY electrolytes, oral Packet 1 packet PO DAILY vitamin B complex Tablet 1 tab PO DAILY Discontinued Blood Sugar Balance 75-300 mg-mcg Tablet 1 tab PO DAILY Discharge Orders: Discharge Order (Routine); Ordered 03/26/24 Ordered By: Inna Coombs Admission Data Admit Date/Time: 03/22/24 11:25 Attending Provider: Inna Coombs Admit Provider: Michi Barrett Primary Care Provider: PCP,NO Other Providers: Michi Barrett; Steve Barton
== END 2024-03-26 13:15 | disposition home or self-care (01) | DRG 280 ==
LOC: ED 09:10 → 1E 11:25 → SUATTDRO 11:25 → 1E 13:09 → 2N 03-24 18:07